=== PATIENT | female | born 1940 | race Caucasian/White ===

== ENCOUNTER 2019-03-31 12:44 | Emergency (ER) | payer MEDICARE, BC ==
[2019-03-31 12:52] VITALS: BP 120/70; PULSE 81; RESP 18; TEMP 98.4
--- NOTE | 2019-03-31 13:56 | CT ---
EXAMINATION TYPE: CT brain puneet escobar DATE OF EXAM: 03/31/2019 COMPARISON: None HISTORY: Fall last week with left frontal injury and small bump. CT DLP: 1211.3 mGycm Automated exposure control for dose reduction was used. TECHNIQUE: CT scan of the head and cervical spine are performed without contrast. FINDINGS: There is no acute intracranial hemorrhage, mass effect, or midline shift identified. Ther e is soft tissue edema or hematoma overlying the left frontal bone. Calvarium intact. Mild to moderat e generalized degenerative change. Nonspecific white matter changes most typical remote microvascular ischemia. Radio opaque densities involving both orbits suggest previous surgery correlate clinically . Cervical spine is visualized in its entirety from C1 through upper thoracic levels and demonstrates s atisfactory alignment without evidence of acute fracture or dislocation. Prevertebral soft tissue ap pears within normal limits. There is severe multilevel degenerative disc disease with vacuum disc. Posterior spondylosis noted at multiple levels and there is multilevel facet arthropathy. Multilevel foraminal encroachment noted. Artifact obscures the spinal canal. Assessment for disc herniation or o f the spinal canal nondiagnostic. Atherosclerotic plaque involving the carotid arteries bilaterally. Correlate clinically. IMPRESSION: 1. There is no acute fracture or dislocation evident in the cervical spine. Severe multilevel degener ative disc disease. 2. No acute intracranial hemorrhage, mass effect, or midline shift is seen. Degenerative and nonspeci fic white matter changes most typical remote microvascular ischemia. Radiopaque densities in the orbi ts associated with the globes most likely is postsurgical and should be correlated clinically. 3. Soft tissue hematoma left frontal region.
--- NOTE | 2019-03-31 14:28 | ED ---
Fall HPI - General Chief Complaint: Fall Stated Complaint: Fall-facial injury Time Seen by Provider: 03/31/19 12:54 Source: patient, RN notes reviewed Mode of arrival: wheelchair Limitations: no limitations - History of Present Illness Initial Comments: 78-year-old female presents emergency Department with chief complaint of fall, head injury. Patient is she fell one week ago when she is cleaning her stairs. Patient states she fell down 3 steps and hit her head. She does take a baby aspirin but no other blood thinners including Coumadin, Zaroxolyn, Eliquis or any other meds. Patient states that she has no current headache denies any neck pain but states that she still has tenderness over her forehead and has extensive bruising which is concerning to her. Patient denies any dizziness, nausea, vomiting, fever, chills, neck or back pain. - Related Data Home Medications Medication Instructions Recorded Confirmed Baclofen [Lioresal] 20 mg PO TID 03/31/19 03/31/19 Brinzolamide/Brimonidine Tart 1 drop BOTH EYES BID 03/31/19 03/31/19 [Simbrinza 1%-0.2% Eye Drops] Diclofenac Sodium [Voltaren Gel] 2 gram TOPICAL QID 03/31/19 03/31/19 Gabapentin 600 mg PO TID 03/31/19 03/31/19 Hydrocodone/Acetaminophen [[place] 1 tab PO Q6H PRN 03/31/19 03/31/19 10-325] Timolol 0.5% Ophth Soln [Timoptic 1 drop BOTH EYES DAILY 03/31/19 03/31/19 0.5% Ophth Soln] clonazePAM 1 mg PO BID 03/31/19 03/31/19 oxyCODONE ER [OxyCONTIN] 80 mg PO Q12HR 03/31/19 03/31/19 Allergies Allergy/AdvReac Type Severity Reaction Status Date / Time No Known Allergies Allergy Verified 03/31/19 14:01 Review of Systems ROS Statement: Those systems with pertinent positive or pertinent negative responses have been documented in the HPI. ROS Other: All systems not noted in ROS Statement are negative. Past Medical History Additional Past Medical History / Comment(s): osteoporosis, scoloisis, arthritis History of Any Multi-Drug Resistant Organisms: None Reported Past Surgical History: Appendectomy, Hysterectomy, Orthopedic Surgery Past Psychological History: No Psychological Hx Reported Smoking Status: Never smoker Past Alcohol Use History: Rare Past Drug Use History: None Reported General Exam Limitations: no limitations General appearance: alert, in no apparent distress Head exam: Present: atraumatic, normocephalic, normal inspection Eye exam: Present: PERRL, EOMI, periorbital swelling, periorbital tenderness. Absent: normal appearance, scleral icterus, conjunctival injection ENT exam: Present: normal exam, normal oropharynx, mucous membranes moist, TM's normal bilaterally, normal external ear exam Neck exam: Present: normal inspection, full ROM. Absent: tenderness, meningismus, lymphadenopathy Respiratory exam: Present: normal lung sounds bilaterally. Absent: respiratory distress, wheezes, rales, rhonchi, stridor Cardiovascular Exam: Present: regular rate, normal rhythm, normal heart sounds. Absent: systolic murmur, diastolic murmur, rubs, gallop, clicks Neurological exam: Present: alert, oriented X3, CN II-XII intact, reflexes normal. Absent: motor sensory deficit Skin exam: Present: warm, dry, intact, normal color. Absent: rash Course Vital Signs 03/31/19 12:48 Temperature 98.4 F Pulse Rate 81 Respiratory 18 Rate Blood Pressure 120/70 O2 Sat by Pulse 94 L Oximetry Medical Decision Making - Medical Decision Making 78-year-old female presented from for fall, head injury CT of 97 were ordered which are negative. Patient will be discharged return parameters were discussed. Disposition Clinical Impression: Fall, Head injury, Facial hematoma Disposition: HOME SELF-CARE Condition: Stable Instructions (If sedation given, give patient instructions): Head Injury (ED) Additional Instructions: Please return to the Emergency Department if symptoms worsen or any other concerns. Is patient prescribed a controlled substance at d/c from ED?: No Referrals: Mario Downey MD [Primary Care Provider] - 1-2 days Time of Disposition: 14:28
== END 2019-03-31 14:52 | disposition home or self-care (01) ==
LOC: EC 12:44
DX: S00.83XA Contusion of other part of head, initial encounter (principal); H57.89 Other specified disorders of eye and adnexa; M19.90 Unspecified osteoarthritis, unspecified site; Z79.1 Long term (current) use of non-steroidal anti-inflammatories (NSAID); Z79.82 Long term (current) use of aspirin; Z79.899 Other long term (current) drug therapy; W10.9XXA Fall (on) (from) unspecified stairs and steps, initial encounter; Y93.E9 Activity, other interior property and clothing maintenance
CPT/HCPCS: 70450; 72125; 99283

== ENCOUNTER 2020-03-28 02:03 | Emergency (ER) | payer MEDICARE, BC ==
[2020-03-28] MEDS ORDERED: LORazepam 2 MG/ML INJ IV STA (02:23)
[2020-03-28] MEDS ORDERED: SODIUM CHLORIDE 0.9% 500 ML 500 ML IV STA (02:23)
[2020-03-28] MEDS ORDERED: SODIUM CHLORIDE 0.9% 1,000 ML IV STA (02:23)
[2020-03-28] MEDS ORDERED: LABETALOL 5 MG/ML VIAL MDV IVP STA (02:23)
--- NOTE | 2020-03-28 02:35 | ED ---
Recheck HPI - General Chief Complaint: Recheck/Abnormal Lab/Rx Stated Complaint: bp issues Time Seen by Provider: 03/28/20 02:11 Source: patient, family, RN notes reviewed, old records reviewed Mode of arrival: ambulatory Limitations: no limitations - History of Present Illness Initial Comments: This is a 79-year-old female DF for evaluation patient presents today for evaluation regards to possibly taking medication, anxious but her blood pressures been running high. 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 Complaint: other (Patient wrong medication) -: hour(s) Returns Today for: other (No symptoms did have elevated blood pressure) Symptoms Since Prior Visit: no new symptoms Associated Symptoms: none Treatments Prior to Arrival: other (No treatment stated blood pressure resolved) - Related Data Home Medications Medication Instructions Recorded Confirmed Baclofen [Lioresal] 20 mg PO TID 03/31/19 03/28/20 Gabapentin 600 mg PO TID 03/31/19 03/28/20 Hydrocodone/Acetaminophen [[place] 1 tab PO Q6H PRN 03/31/19 03/28/20 10-325] clonazePAM 1 mg PO BID 03/31/19 03/28/20 Furosemide [Lasix] 20 mg PO DAILY 03/28/20 03/28/20 Losartan [Cozaar] 50 mg PO DAILY 03/28/20 03/28/20 Sulfamethox-Tmp 800-160Mg [Bactrim 1 tab PO Q12H 03/28/20 03/28/20 DS 800-160 mg] Previous Rx's Medication Instructions Recorded Gabapentin [Neurontin] 300 mg PO TID #90 cap 03/30/20 amLODIPine [Norvasc] 10 mg PO DAILY #30 tab 03/30/20 oxyCODONE ER [OxyCONTIN] 40 mg PO Q12HR #60 tab.er.12h 03/30/20 Allergies Allergy/AdvReac Type Severity Reaction Status Date / Time No Known Allergies Allergy Verified 03/28/20 19:11 Review of Systems ROS Statement: Those systems with pertinent positive or pertinent negative responses have been documented in the HPI. ROS Other: All systems not noted in ROS Statement are negative. Past Medical History Additional Past Medical History / Comment(s): osteoporosis, scoloisis, arthritis History of Any Multi-Drug Resistant Organisms: None Reported Past Surgical History: Appendectomy, Hysterectomy, Orthopedic Surgery Past Psychological History: No Psychological Hx Reported Smoking Status: Never smoker Past Alcohol Use History: Rare Past Drug Use History: None Reported General Exam Limitations: no limitations General appearance: anxious Head exam: Present: atraumatic, normocephalic, normal inspection Eye exam: Present: normal appearance, PERRL, EOMI. Absent: scleral icterus, con junctival injection, periorbital swelling ENT exam: Present: normal exam, mucous membranes moist Neck exam: Present: normal inspection. Absent: tenderness, meningismus, lymphadenopathy Respiratory exam: Present: normal lung sounds bilaterally. Absent: respiratory distress, wheezes, rales, rhonchi, stridor Cardiovascular Exam: Present: regular rate, normal rhythm, normal heart sounds. Absent: systolic murmur, diastolic murmur, rubs, gallop, clicks GI/Abdominal exam: Present: soft, normal bowel sounds. Absent: distended, tenderness, guarding, rebound, rigid Extremities exam: Present: normal inspection, full ROM, normal capillary refill. Absent: tenderness, pedal edema, joint swelling, calf tenderness Back exam: Present: normal inspection Neurological exam: Present: alert, oriented X3, CN II-XII intact Psychiatric exam: Present: normal affect, normal mood Skin exam: Present: warm, dry, intact, normal color. Absent: rash Course Vital Signs 03/28/20 03/28/20 03/28/20 02:11 03:00 04:55 Temperature 99.6 F 98.9 F Pulse Rate 118 H 82 84 Respiratory 18 18 16 Rate Blood Pressure 200/93 170/69 168/92 O2 Sat by Pulse 96 95 95 Oximetry - Reevaluation(s) Reevaluation #1: Medical records reviewed Patient is anxious a little improving here in the ER Spoke at length regarding symptoms with both son and patient, questions answered Medical Decision Making - Medical Decision Making 79-year-old female DF for evaluation patient several blood pressure issues medication issues currently believe she may have taken too many or the wrong Medications tonight no significant symptoms here in the ER blood pressures improved labwork otherwise normal patient can be discharged home, so 0 to take her home - Lab Data Result diagrams: 03/28/20 02:50 03/28/20 02:50 Lab Results 03/28/20 03/28/20 03/28/20 Range/Units 02:50 02:50 02:50 WBC 11.0 H (3.8-10.6) k/uL RBC 3.72 L (3.80-5.40) m/uL Hgb 10.2 L (11.4-16.0) gm/dL Hct 32.8 L (34.0-46.0) % MCV 88.1 (80.0-100.0) fL MCH 27.5 (25.0-35.0) pg MCHC 31.2 (31.0-37.0) g/dL RDW 15.4 (11.5-15.5) % Plt Count 143 L (150-450) k/uL Neutrophils % 89 % Lymphocytes % 6 % Monocytes % 4 % Eosinophils % 0 % Basophils % 0 % Neutrophils # 9.8 H (1.3-7.7) k/uL Lymphocytes # 0.7 L (1.0-4.8) k/uL Monocytes # 0.4 (0-1.0) k/uL Eosinophils # 0.0 (0-0.7) k/uL Basophils # 0.0 (0-0.2) k/uL PT 9.5 (9.0-12.0) sec INR 0.9 (<1.2) APTT 26.4 (22.0-30.0) sec Sodium 135 L (137-145) mmol/L Potassium 4.6 (3.5-5.1) mmol/L Chloride 100 (98-107) mmol/L Carbon Dioxide 25 (22-30) mmol/L Anion Gap 10 mmol/L BUN 33 H (7-17) mg/dL Creatinine 0.79 (0.52-1.04) mg/dL Est GFR (CKD-EPI)AfAm 82 (>60 ml/min/1.73 sqM) Est GFR (CKD-EPI)NonAf 71 (>60 ml/min/1.73 sqM) Glucose 127 H (74-99) mg/dL Calcium 9.7 (8.4-10.2) mg/dL Phosphorus 3.7 (2.5-4.5) mg/dL Magnesium 2.1 (1.6-2.3) mg/dL Total Bilirubin 0.2 (0.2-1.3) mg/dL AST 71 H (14-36) U/L ALT 32 (4-34) U/L Alkaline Phosphatase 71 (38-126) U/L Creatine Kinase 281 H (30-135) U/L Troponin I (0.000-0.034) ng/mL NT-Pro-B Natriuret Pep pg/mL Total Protein 7.6 (6.3-8.2) g/dL Albumin 4.3 (3.5-5.0) g/dL TSH 0.715 (0.465-4.680) mIU/L 03/28/20 03/28/20 Range/Units 02:50 02:50 WBC (3.8-10.6) k/uL RBC (3.80-5.40) m/uL Hgb (11.4-16.0) gm/dL Hct (34.0-46.0) % MCV (80.0-100.0) fL MCH (25.0-35.0) pg MCHC (31.0-37.0) g/dL RDW (11.5-15.5) % Plt Count (150-450) k/uL Neutrophils % % Lymphocytes % % Monocytes % % Eosinophils % % Basophils % % Neutrophils # (1.3-7.7) k/uL Lymphocytes # (1.0-4.8) k/uL Monocytes # (0-1.0) k/uL Eosinophils # (0-0.7) k/uL Basophils # (0-0.2) k/uL PT (9.0-12.0) sec INR (<1.2) APTT (22.0-30.0) sec Sodium (137-145) mmol/L Potassium (3.5-5.1) mmol/L Chloride (98-107) mmol/L Carbon Dioxide (22-30) mmol/L Anion Gap mmol/L BUN (7-17) mg/dL Creatinine (0.52-1.04) mg/dL Est GFR (CKD-EPI)AfAm (>60 ml/min/1.73 sqM) Est GFR (CKD-EPI)NonAf (>60 ml/min/1.73 sqM) Glucose (74-99) mg/dL Calcium (8.4-10.2) mg/dL Phosphorus (2.5-4.5) mg/dL Magnesium (1.6-2.3) mg/dL Total Bilirubin (0.2-1.3) mg/dL AST (14-36) U/L ALT (4-34) U/L Alkaline Phosphatase (38-126) U/L Creatine Kinase (30-135) U/L Troponin I <0.012 (0.000-0.034) ng/mL NT-Pro-B Natriuret Pep 652 pg/mL Total Protein (6.3-8.2) g/dL Albumin (3.5-5.0) g/dL TSH (0.465-4.680) mIU/L - Radiology Data Radiology results: report reviewed (Chest x-rays negative for acute disease), image reviewed Disposition Clinical Impression: Hypertension, Accidental drug ingestion Disposition: HOME SELF-CARE Condition: Good Instructions (If sedation given, give patient instructions): Hypertension (ED) Is patient prescribed a controlled substance at d/c from ED?: No Referrals: Mario Downey MD [Primary Care Provider] - 1-2 days
--- NOTE | 2020-03-28 03:05 | XR ---
EXAMINATION TYPE: XR chest 2V DATE OF EXAM: 03/28/2020 COMPARISON: NONE HISTORY: Weakness TECHNIQUE: 2 views FINDINGS: There is no heart failure. There is elevated right diaphragm. There is large hiatal hernia. Lungs appear clear of consolidation. There are no hilar masses. There is bilateral shoulder prosthes is. There are chest leads. IMPRESSION: Elevated right diaphragm could relate to some diaphragm paralysis. No heart failure seen. No pulmonary consolidation.
[2020-03-28 03:22] LABS: Albumin 4.3 g/dL (3.5-5.0); Calcium 9.7 mg/dL (8.4-10.2); Magnesium 2.1 mg/dL (1.6-2.3); Phosphorus 3.7 mg/dL (2.5-4.5); Potassium 4.6 mmol/L (3.5-5.1); Total Bilirubin 0.2 mg/dL (0.2-1.3); Total Protein 7.6 g/dL (6.3-8.2)
[2020-03-28 03:24] LABS: INR 0.9 (<1.2); Partial Thromboplastin Time 26.4 sec (22.0-30.0); Prothrombin Time 9.5 sec (9.0-12.0)
[2020-03-28 03:27] LABS: Basophils % (A) 0 %; Eosinophils % (A) 0 %; HCT 32.8 % (34.0-46.0); HGB 10.2 gm/dL (11.4-16.0); Lymphocytes # (A) 0.7 k/uL (1.0-4.8); Lymphocytes % (A) 6 %; MCH 27.5 pg (25.0-35.0); MCHC 31.2 g/dL (31.0-37.0); MCV 88.1 fL (80.0-100.0); Mean Platelet Volume 9.1; Monocytes # (A) 0.4 k/uL (0-1.0); Monocytes % (A) 4 %; Neutrophils # (A) 9.8 k/uL (1.3-7.7); Neutrophils % (A) 89 %; Platelet Count 143 k/uL (150-450); RBC 3.72 m/uL (3.80-5.40); RDW 15.4 % (11.5-15.5)
[2020-03-28 04:56] VITALS: BP 168/92; PULSE 84; RESP 16; TEMP 98.9
== END 2020-03-28 04:54 | disposition home or self-care (01) ==
LOC: EC 02:03
DX: T65.91XA Toxic effect of unspecified substance, accidental (unintentional), initial encounter (principal); I10 Essential (primary) hypertension
CPT/HCPCS: 36415; 93005; 83880; 80053; 82550; 83735; 84100; 84443; 84484; 85025; 85610; 85730; 71046; 99284; 96374; 96375; 96361 ×2; J2060

== ENCOUNTER 2020-03-28 18:14 | Inpatient (IN) | payer MEDICARE, BC ==
[2020-03-28] MEDS ORDERED: SODIUM CHLORIDE 0.9% 1,000 ML IV STA (18:40)
--- NOTE | 2020-03-28 18:44 | ED ---
Seizure HPI - General Chief Complaint: Seizure Stated Complaint: Seizure Time Seen by Provider: 03/28/20 18:20 Source: patient, EMS, RN notes reviewed, old records reviewed Mode of arrival: EMS Limitations: no limitations - History of Present Illness Initial Comments: This 79-year-old female with a history of left foot surgery days ago was seen here earlier this morning for accelerated episode of hypertension who is back today after having what appear to be a seizure activity episode lasting about 30 seconds per family the patient's son who was present did see this activity lasted approximately 30 seconds and patient was minimally responsive until EMS arrived and started intending to her. No prior history of seizure no chest pain no palpitations no other modifying factors at this time other than to state that the patient blood pressure have been going up prior to this episode. MD Complaint: possible seizure - Related Data Home Medications Medication Instructions Recorded Confirmed Baclofen [Lioresal] 20 mg PO TID 03/31/19 03/28/20 Gabapentin 600 mg PO TID 03/31/19 03/28/20 Hydrocodone/Acetaminophen [[place] 1 tab PO Q6H PRN 03/31/19 03/28/20 10-325] clonazePAM 1 mg PO BID 03/31/19 03/28/20 oxyCODONE ER [OxyCONTIN] 80 mg PO Q12HR 03/31/19 03/28/20 Furosemide [Lasix] 20 mg PO DAILY 03/28/20 03/28/20 Losartan [Cozaar] 50 mg PO DAILY 03/28/20 03/28/20 Sulfamethox-Tmp 800-160Mg [Bactrim 1 tab PO Q12H 03/28/20 03/28/20 DS 800-160 mg] Allergies Allergy/AdvReac Type Severity Reaction Status Date / Time No Known Allergies Allergy Verified 03/28/20 19:11 Review of Systems ROS Statement: Those systems with pertinent positive or pertinent negative responses have been documented in the HPI. ROS Other: All systems not noted in ROS Statement are negative. Past Medical History Additional Past Medical History / Comment(s): osteoporosis, scoloisis, arthritis History of Any Multi-Drug Resistant Organisms: None Reported Past Surgical History: Appendectomy, Hysterectomy, Orthopedic Surgery Past Psychological History: No Psychological Hx Reported Smoking Status: Never smoker Past Alcohol Use History: Rare Past Drug Use History: None Reported General Exam - General Exam Comments Initial Comments: This is a well-developed asthenic appearing female who is awake alert oriented 3 Limitations: no limitations General appearance: alert, in no apparent distress Head exam: Present: atraumatic, normocephalic, normal inspection Eye exam: Present: normal appearance, PERRL, EOMI. Absent: scleral icterus, conjunctival injection, periorbital swelling ENT exam: Present: mucous membranes dry Neck exam: Present: normal inspection, full ROM, other (No stridor JVD or bruits). Absent: tenderness, meningismus, lymphadenopathy Respiratory exam: Present: normal lung sounds bilaterally. Absent: respiratory distress, wheezes, rales, rhonchi, stridor Cardiovascular Exam: Present: normal rhythm, tachycardia, normal heart sounds. Absent: systolic murmur, diastolic murmur, rubs, gallop, clicks GI/Abdominal exam: Present: soft, normal bowel sounds. Absent: distended, tenderness, guarding, rebound, rigid Extremities exam: Present: full ROM, normal capillary refill, other ("With dressing applied no evidence of any sensorimotor vascular deficits). Absent: tenderness, pedal edema, joint swelling, calf tenderness Back exam: Present: normal inspection Neurological exam: Present: alert, oriented X3, CN II-XII intact Psychiatric exam: Present: normal affect, normal mood Skin exam: Present: warm, dry, intact, normal color. Absent: rash Course Vital Signs 03/28/20 03/28/20 03/28/20 18:16 18:20 18:58 Temperature 97.8 F Pulse Rate 126 H 107 H 105 H Respiratory 16 16 16 Rate Blood Pressure 200/92 204/103 191/90 O2 Sat by Pulse 91 L 91 L 94 L Oximetry 03/28/20 19:47 Temperature Pulse Rate 105 H Respiratory 18 Rate Blood Pressure 191/81 O2 Sat by Pulse 97 Oximetry Medical Decision Making - Medical Decision Making I did reevaluate patient several occasions patient will be admitted for evaluation case is discussed with Dr. Downey. - Lab Data Result diagrams: 03/28/20 18:29 03/28/20 18:29 Lab Results 03/28/20 03/28/20 03/28/20 Range/Units 18:29 18:29 18:56 WBC 9.2 (3.8-10.6) k/uL RBC 4.10 (3.80-5.40) m/uL Hgb 11.3 L (11.4-16.0) gm/dL Hct 36.4 (34.0-46.0) % MCV 88.7 (80.0-100.0) fL MCH 27.6 (25.0-35.0) pg MCHC 31.1 (31.0-37.0) g/dL RDW 15.2 (11.5-15.5) % Plt Count 164 (150-450) k/uL Neutrophils % 86 % Lymphocytes % 9 % Monocytes % 4 % Eosinophils % 0 % Basophils % 0 % Neutrophils # 7.9 H (1.3-7.7) k/uL Lymphocytes # 0.8 L (1.0-4.8) k/uL Monocytes # 0.3 (0-1.0) k/uL Eosinophils # 0.0 (0-0.7) k/uL Basophils # 0.0 (0-0.2) k/uL Sodium 130 L (137-145) mmol/L Potassium 4.7 (3.5-5.1) mmol/L Chloride 96 L (98-107) mmol/L Carbon Dioxide 21 L (22-30) mmol/L Anion Gap 13 mmol/L BUN 21 H (7-17) mg/dL Creatinine 0.71 (0.52-1.04) mg/dL Est GFR (CKD-EPI)AfAm >90 (>60 ml/min/1.73 sqM) Est GFR (CKD-EPI)NonAf 81 (>60 ml/min/1.73 sqM) Glucose 215 H (74-99) mg/dL POC Glucose (mg/dL) 207 H (75-99) mg/dL POC Glu Marketing Representative ID [place], [place] Calcium 9.4 (8.4-10.2) mg/dL Magnesium 2.0 (1.6-2.3) mg/dL Total Bilirubin 0.3 (0.2-1.3) mg/dL AST 57 H (14-36) U/L ALT 28 (4-34) U/L Alkaline Phosphatase 67 (38-126) U/L Total Protein 7.6 (6.3-8.2) g/dL Albumin 4.3 (3.5-5.0) g/dL - EKG Data -: EKG Interpreted by Ne EKG shows normal: sinus rhythm (Sinus tachycardia rate of 108 appear interval 1:30 QRS duration 74 QT since QTC 360/[address] configuration is compared to EKG done earlier this morning.) - Radiology Data Radiology results: report reviewed (I did review the imaging and report no acute findings.), image reviewed Disposition Clinical Impression: New onset seizure, Hypertension Disposition: ADMITTED IP TO THIS [facility] Condition: Fair Referrals: Mario Downey MD [Primary Care Provider] - 1-2 days
[2020-03-28 18:57] LABS: Basophils % (A) 0 %; Eosinophils % (A) 0 %; HCT 36.4 % (34.0-46.0); HGB 11.3 gm/dL (11.4-16.0); Lymphocytes # (A) 0.8 k/uL (1.0-4.8); Lymphocytes % (A) 9 %; MCH 27.6 pg (25.0-35.0); MCHC 31.1 g/dL (31.0-37.0); MCV 88.7 fL (80.0-100.0); Mean Platelet Volume 9.7; Monocytes # (A) 0.3 k/uL (0-1.0); Monocytes % (A) 4 %; Neutrophils # (A) 7.9 k/uL (1.3-7.7); Neutrophils % (A) 86 %; Platelet Count 164 k/uL (150-450); RDW 15.2 % (11.5-15.5); WBC 9.2 k/uL (3.8-10.6)
[2020-03-28 19:06] LABS: ALT 28 U/L (4-34); AST 57 U/L (14-36); African American GFR (CKD) >90 (>60 ml/min/1.73 sqM); Albumin 4.3 g/dL (3.5-5.0); Alkaline Phosphatase 67 U/L (38-126); Anion Gap 13 mmol/L; Blood Urea Nitrogen 21 mg/dL (7-17); Calcium 9.4 mg/dL (8.4-10.2); Carbon Dioxide 21 mmol/L (22-30); Chloride 96 mmol/L (98-107); Glucose 215 mg/dL (74-99); Non-African American GFR(CKD) 81 (>60 ml/min/1.73 sqM); Potassium 4.7 mmol/L (3.5-5.1); Sodium 130 mmol/L (137-145); Total Bilirubin 0.3 mg/dL (0.2-1.3); Total Protein 7.6 g/dL (6.3-8.2)
[2020-03-28 19:12] LABS: Glucose,Whole Blood 207 mg/dL (75-99)
--- NOTE | 2020-03-28 19:45 | CT ---
EXAMINATION TYPE: CT brain wo con DATE OF EXAM: 03/28/2020 HISTORY: possible overdose. Altered Mental status and seizure activity. CT DLP: 1173.4 mGycm. Automated Exposure Control for Dose Reduction was Utilized. TECHNIQUE: CT scan of the head is performed without contrast. COMPARISON: CT brain from March 31, 2019 FINDINGS: There is no acute intracranial hemorrhage or midline shift identified. There is diffuse v entricular and sulcal prominence consistent with diffuse age-related cerebral atrophy. There is low- attenuation in the periventricular white matter consistent with chronic small vessel ischemic change. Persistent bilateral scleral collin. Paranasal sinuses are clear. IMPRESSION: No acute intracranial hemorrhage or midline shift. There is mild diffuse age-related ce rebral atrophy and chronic small vessel ischemic change redemonstrated. No significant change from pr ior CT.
[2020-03-28] MEDS ORDERED: oxyCODONE ER 80 MG TAB.ER.12H PO STA (20:14)
[2020-03-28] MEDS ORDERED: NALOXONE 0.4 MG/ML 1 ML VIAL IV PRN (20:39)
[2020-03-28] MEDS ORDERED: HYDROcodone/APAP 10-325MG 1 EACH TAB PO PRN (20:42)
[2020-03-28] MEDS: oxyCODONE ER 80 MG TAB.ER.12H PO SCH (20:58)
[2020-03-28] MEDS: SULFAMETHOX-TMP 800-160MG 1 EACH TAB PO SCH (21:00)
[2020-03-28] MEDS: SODIUM CHLORIDE 0.9% 1,000 ML IV SCH (21:00)
[2020-03-28 21:45] LABS: Amorphous Sediment,Urine Rare /hpf; Appearance,Urine Clear (Clear); Bacteria,Urine Rare /hpf; Bilirubin,Urine Negative (Negative); Blood,Urine Negative (Negative); Color,Urine Light Yellow; Glucose,Urine (UA) 3+ (Negative); Ketones,Urine Negative (Negative); Leukocyte Esterase,Urine Small (Negative); Nitrite,Urine Negative (Negative); Protein,Urine Negative (Negative); RBC,Urine 2 /hpf (0-5); Specific Gravity,Urine 1.014 (1.001-1.035); Squamous Epithelial Cell,Urine 2 /hpf (0-4); Urobilinogen,Urine <2.0 mg/dL (<2.0); WBC,Urine 10 /hpf (0-5)
[2020-03-28] MEDS ORDERED: LABETALOL 5 MG/ML VIAL MDV IVP STA ×2 (22:15→22:25)
[2020-03-28] MEDS: BACLOFEN 10 MG TAB PO SCH (22:30)
[2020-03-28] MEDS: clonazePAM 1 MG TAB PO SCH (22:30)
[2020-03-28] MEDS: amLODIPine 5 MG TAB PO SCH (23:48)
[2020-03-28] MEDS: GABAPENTIN 300 MG CAP PO SCH (23:49)
--- NOTE | 2020-03-29 08:00 | P.HPIM ---
History of Present Illness H&P Date: 03/29/20 Chief Complaint: Tonic clonic This is a history and physical an 79-year-old white female with no previous history of seizure disorder who states that she, for the last several months has started new vitamin regimen area supposedly, the bottle stated that she was not supposed to take the supplement with antibiotics. She states she recently had dilatation done and was on postoperative antibiotic treatment. When her son was visiting her, she had fallen and had tonic-clonic activity for several minutes and was postictal. When she arrived in the emergency room, she was quite lucid however. Computed tomography scan of the head did not show any new abnormality, and the patient seems to be back to her normal baseline although she her thoughts do somewhat wander when interviewing her. She hasn't underlying history of severe scoliosis and lordosis and has an element of chronic pain. She is opiate dependent. Underlying history of glaucoma also. Review of Systems Constitutional: Denies chills, Denies fever Eyes: denies blurred vision, denies pain Ears, nose, mouth and throat: Denies headache, Denies sore throat Respiratory: Denies cough Gastrointestinal: Denies abdominal pain, Denies diarrhea, Denies nausea, Denies vomiting Musculoskeletal: Reports limitation of motion, Reports low back pain Integumentary: Denies pruritus, Denies rash Neurological: Reports confusion, Reports seizures Psychiatric: Denies anxiety, Denies depression Endocrine: Denies fatigue, Denies weight change Past Medical History Additional Past Medical History / Comment(s): osteoporosis, scoloisis, arthritis History of Any Multi-Drug Resistant Organisms: None Reported Past Surgical History: Appendectomy, Hysterectomy, Orthopedic Surgery Additional Past Surgical History / Comment(s): 2 shoulder surgeries with metal plates, hammer toes Past Anesthesia/Blood Transfusion Reactions: No Reported Reaction Past Psychological History: No Psychological Hx Reported Smoking Status: Never smoker Past Alcohol Use History: Rare Past Drug Use History: None Reported Medications and Allergies Home Medications Medication Instructions Recorded Confirmed Type Baclofen [Lioresal] 20 mg PO TID 03/31/19 03/28/20 History Gabapentin 600 mg PO TID 03/31/19 03/28/20 History Hydrocodone/Acetaminophen [[place] 1 tab PO Q6H PRN 03/31/19 03/28/20 History 10-325] clonazePAM 1 mg PO BID 03/31/19 03/28/20 History oxyCODONE ER [OxyCONTIN] 80 mg PO Q12HR 03/31/19 03/28/20 History Furosemide [Lasix] 20 mg PO DAILY 03/28/20 03/28/20 History Losartan [Cozaar] 50 mg PO DAILY 03/28/20 03/28/20 History Sulfamethox-Tmp 800-160Mg [Bactrim 1 tab PO Q12H 03/28/20 03/28/20 History DS 800-160 mg] Allergies Allergy/AdvReac Type Severity Reaction Status Date / Time No Known Allergies Allergy Verified 03/28/20 19:11 Physical Exam Vitals: Vital Signs Temp Pulse Pulse Resp BP BP Pulse Ox 03/29/20 04:00 98.5 F 102 H 19 159/66 93 L 03/29/20 00:00 98.5 F 94 19 156/72 97 03/28/20 21:40 98.8 F 101 H 19 202/83 97 03/28/20 20:50 90 17 191/89 97 03/28/20 19:47 105 H 18 191/81 97 03/28/20 18:58 105 H 16 191/90 94 L 03/28/20 18:20 107 H 16 204/103 91 L 03/28/20 18:16 97.8 F 126 H 16 200/92 91 L Intake and Output 03/28/20 03/29/20 03/29/20 22:59 06:59 14:59 Other: Voiding Method Bedpan # Voids 2 Weight 45.359 kg 48 kg - Constitutional General appearance: no acute distress - EENT Eyes: EOMI - Neck Neck: no lymphadenopathy - Respiratory Respiratory: bilateral: CTA - Cardiovascular Rhythm: regular Heart sounds: normal: S1, S2 Abnormal Heart Sounds: no S3 Gallop - Gastrointestinal General gastrointestinal: soft, no tenderness - Integumentary Postop amputation of toes. - Psychiatric Psychiatric: appropriate affect Results CBC & Chem 7: 03/28/20 18:29 03/28/20 18:29 Labs: Abnormal Lab Results - Last 24 Hours (Table) 03/28/20 03/28/20 03/28/20 Range/Units 18:29 18:29 18:56 Hgb 11.3 L (11.4-16.0) gm/dL Neutrophils # 7.9 H (1.3-7.7) k/uL Lymphocytes # 0.8 L (1.0-4.8) k/uL Sodium 130 L (137-145) mmol/L Chloride 96 L (98-107) mmol/L Carbon Dioxide 21 L (22-30) mmol/L BUN 21 H (7-17) mg/dL Glucose 215 H (74-99) mg/dL POC Glucose (mg/dL) 207 H (75-99) mg/dL AST 57 H (14-36) U/L Urine Glucose (UA) (Negative) Ur Leukocyte Esterase (Negative) Urine WBC (0-5) /hpf Amorphous Sediment (None) /hpf Urine Bacteria (None) /hpf 03/28/20 Range/Units 21:05 Hgb (11.4-16.0) gm/dL Neutrophils # (1.3-7.7) k/uL Lymphocytes # (1.0-4.8) k/uL Sodium (137-145) mmol/L Chloride (98-107) mmol/L Carbon Dioxide (22-30) mmol/L BUN (7-17) mg/dL Glucose (74-99) mg/dL POC Glucose (mg/dL) (75-99) mg/dL AST (14-36) U/L Urine Glucose (UA) 3+ H (Negative) Ur Leukocyte Esterase Small H (Negative) Urine WBC 10 H (0-5) /hpf Amorphous Sediment Rare H (None) /hpf Urine Bacteria Rare H (None) /hpf Microbiology - Last 24 Hours (Table) 03/28/20 21:00 Urine Culture - Preliminary Urine,Voided Thrombosis Risk Factor Assmnt - Choose All That Apply Each Risk Factor Represents 3 Points: Age 75 years or older Thrombosis Risk Factor Assessment Total Risk Factor Score: 3 Thrombosis Risk Factor Assessment Level: Moderate Risk Assessment and Plan (1) Scoliosis Current Visit: Yes Status: Acute Code(s): M41.9 - SCOLIOSIS, UNSPECIFIED SNOMED Code(s): 819586474 (2) Hypertension Current Visit: Yes Status: Acute Code(s): I10 - ESSENTIAL (PRIMARY) HYPERTENSION SNOMED Code(s): 91015764 (3) New onset seizure Current Visit: Yes Status: Acute Code(s): R56.9 - UNSPECIFIED CONVULSIONS SNOMED Code(s): 28337819 (4) Accidental drug ingestion Current Visit: No Status: Acute Code(s): T50.901A - POISONING BY UNSP DRUG/MEDS/BIOL SUBST, ACCIDENTAL, INIT SNOMED Code(s): 585708626 Plan: The plan will be due full neurologic workup with consultation. Reconcile home medications. The patient is told to stop vitamin supplementation for now other than her eye support for glaucoma. Check CBC and CMP in a.m. Prognosis is guarded see orders otherwise. Adjust antihypertensive medication Time with Patient: Greater than 30
[2020-03-29] MEDS: SULFAMETHOX-TMP 800-160MG 1 EACH TAB PO SCH ×2 (08:13→20:42)
[2020-03-29] MEDS: amLODIPine 5 MG TAB PO SCH (08:13)
[2020-03-29] MEDS: FUROSEMIDE 20 MG TAB PO SCH (08:13)
[2020-03-29] MEDS: LOSARTAN 50 MG TAB PO SCH (08:14)
[2020-03-29] MEDS: SODIUM CHLORIDE 0.9% 1,000 ML IV SCH ×2 (10:31→21:00)
[2020-03-29] MEDS: clonazePAM 1 MG TAB PO SCH ×2 (10:31→20:42)
[2020-03-29] MEDS: GABAPENTIN 300 MG CAP PO SCH ×3 (10:32→23:51)
[2020-03-29] MEDS: oxyCODONE ER 80 MG TAB.ER.12H PO SCH ×2 (10:33→20:42)
[2020-03-29] MEDS: BACLOFEN 10 MG TAB PO SCH ×3 (10:35→23:50)
--- NOTE | 2020-03-29 12:36 | EEG ---
ELECTROENCEPHALOGRAM REPORT DATE OF SERVICE: 03/29/2020 PREAMBLE: This is an 79-year-old female who was brought to the hospital after possible having a seizure at home according to her son. EEG FINDINGS: This is a 21 channel routine EEG recording. The patient is noted to be awake during the study. Hyperventilation was not done. Photic stimulation was performed. The EEG was performed utilizing 10-20 international system with referential and bipolar montages. Background consists of well-developed, moderately well regulated, mixed frequency of 10-11 Hz alpha, mixed with some fast frequency myogenic activity. The background does not seem to be clearly reactive to eye opening or closing. Photic driving response was not seen. Different stages of sleep were not seen. No focal or generalized epileptiform activity was seen. EKG rhythm lead revealed no arrhythmia. IMPRESSION: This is a normal awake EEG. No focal, lateralized or epileptiform activity was seen. MMODL / IJN: [id number] / MTDD
--- NOTE | 2020-03-29 12:57 | P.CRDCN ---
History of Present Illness Consult date: 03/29/20 Requesting physician: Mario Downey Consult reason: hypertension Chief complaint: Seizure-like activity History of present illness: This is an 79-year-old female with history of seizure disorder, osteoporosis, chronic pain and opioid dependence, hypertension, who presented to the hospital with what appeared to be a tonic-clonic seizure, witnessed by her son. According to the patient, she feels that her symptoms were related to new vitamins that she's been taking at home. She did present to the emergency room prior to this visit at around 2:00 in the morning because of accelerated hypertension, she was treated and discharged home. Cardiology consultation has been requested because of accelerated hypertension. Patient has no history of diabetes, no hyperlipidemia, she is a nonsmoker. Blood pressure this morning 184/74, heart rate 103, temperature 99.4, 93% on 2 L of oxygen. EKG shows a sinus tachycardia with no acute changes. White blood cell count 9.5, hemoglobin 11.3, platelet count 164. Sodium 1:30, potassium 4.7, BUN 21, creatinine 0.7. Magnesium 2.0. Past Medical History Additional Past Medical History / Comment(s): osteoporosis, scoloisis, arthritis History of Any Multi-Drug Resistant Organisms: None Reported Past Surgical History: Appendectomy, Hysterectomy, Orthopedic Surgery Additional Past Surgical History / Comment(s): 2 shoulder surgeries with metal plates, hammer toes Past Anesthesia/Blood Transfusion Reactions: No Reported Reaction Past Psychological History: No Psychological Hx Reported Smoking Status: Never smoker Past Alcohol Use History: Rare Past Drug Use History: None Reported Medications and Allergies Home Medications Medication Instructions Recorded Confirmed Type Baclofen [Lioresal] 20 mg PO TID 03/31/19 03/28/20 History Gabapentin 600 mg PO TID 03/31/19 03/28/20 History Hydrocodone/Acetaminophen [[place] 1 tab PO Q6H PRN 03/31/19 03/28/20 History 10-325] clonazePAM 1 mg PO BID 03/31/19 03/28/20 History oxyCODONE ER [OxyCONTIN] 80 mg PO Q12HR 03/31/19 03/28/20 History Furosemide [Lasix] 20 mg PO DAILY 03/28/20 03/28/20 History Losartan [Cozaar] 50 mg PO DAILY 03/28/20 03/28/20 History Sulfamethox-Tmp 800-160Mg [Bactrim 1 tab PO Q12H 03/28/20 03/28/20 History DS 800-160 mg] Allergies Allergy/AdvReac Type Severity Reaction Status Date / Time No Known Allergies Allergy Verified 03/28/20 19:11 Physical Exam Vitals: Vital Signs Temp Pulse Pulse Resp BP BP Pulse Ox 03/29/20 11:04 93 16 172/81 94 L 03/29/20 08:00 99.4 F 103 H 16 184/74 95 03/29/20 04:00 98.5 F 102 H 19 159/66 93 L 03/29/20 00:00 98.5 F 94 19 156/72 97 03/28/20 21:40 98.8 F 101 H 19 202/83 97 03/28/20 20:50 90 17 191/89 97 03/28/20 19:47 105 H 18 191/81 97 03/28/20 18:58 105 H 16 191/90 94 L 03/28/20 18:20 107 H 16 204/103 91 L 03/28/20 18:16 97.8 F 126 H 16 200/92 91 L Intake and Output 03/28/20 03/29/20 03/29/20 22:59 06:59 14:59 Other: Voiding Method Bedpan # Voids 2 3 Weight 45.359 kg 48 kg PHYSICAL EXAMINATION: GENERAL: 79-year-old female in no acute distress at the time of my examination HEENT: Head is atraumatic, normocephalic. Pupils equal, round. Sclera anicteric. Conjunctiva are clear. Mucous membranes of the mouth are moist. Neck is supple. There is no elevated jugular venous pressure. No carotid bruit is heard. HEART EXAMINATION: Heart S1, S2 normal. No murmur or gallop heard. CHEST EXAMINATION: Lungs are clear to auscultation and precussion. No chest wall tenderness is noted on palpation or with deep breathing. ABDOMEN: Soft, nontender. Bowel sounds are heard. No organomegaly noted. EXTREMITIES: 2+ peripheral pulses with no evidence of peripheral edema and no calf tenderness noted. NEUROLOGIC patient is awake, alert and oriented 3 . Results 03/28/20 18:29 03/28/20 18:29 Cardiac Enzymes 03/28/20 Range/Units 18:29 AST 57 H (14-36) U/L CBC 03/28/20 Range/Units 18:29 WBC 9.2 (3.8-10.6) k/uL RBC 4.10 (3.80-5.40) m/uL Hgb 11.3 L (11.4-16.0) gm/dL Hct 36.4 (34.0-46.0) % Plt Count 164 (150-450) k/uL Comprehensive Metabolic Panel 03/28/20 Range/Units 18:29 Sodium 130 L (137-145) mmol/L Potassium 4.7 (3.5-5.1) mmol/L Chloride 96 L (98-107) mmol/L Carbon Dioxide 21 L (22-30) mmol/L BUN 21 H (7-17) mg/dL Creatinine 0.71 (0.52-1.04) mg/dL Glucose 215 H (74-99) mg/dL Calcium 9.4 (8.4-10.2) mg/dL AST 57 H (14-36) U/L ALT 28 (4-34) U/L Alkaline Phosphatase 67 (38-126) U/L Total Protein 7.6 (6.3-8.2) g/dL Albumin 4.3 (3.5-5.0) g/dL Current Medications Generic Name Dose Route Start Last Admin Trade Name Freq PRN Reason Stop Dose Admin Hydrocodone Bitart/Acetaminophen 1 each 03/28/20 20:42 [place] 10 PO Q6H PRN Pain Amlodipine Besylate 10 mg 03/30/20 09:00 Norvasc PO DAILY MAN Baclofen 20 mg 03/28/20 22:00 03/29/20 10:35 Lioresal PO Not Given TID MAN Clonazepam 1 mg 03/28/20 21:00 03/29/20 10:31 Klonopin PO Not Given BID MAN Furosemide 20 mg 03/29/20 09:00 03/29/20 08:13 Lasix PO 20 mg DAILY MAN Administration Gabapentin 600 mg 03/28/20 22:00 03/29/20 10:32 Neurontin PO 600 mg TID MAN Administration Sodium Chloride 1,000 mls @ 80 mls/hr 03/28/20 20:45 03/29/20 10:31 Saline 0.9% IV Not Given .[id number] MAN Losartan Potassium 50 mg 03/29/20 09:00 03/29/20 08:14 Cozaar PO Not Given DAILY MAN Naloxone HCl 0.2 mg 03/28/20 20:39 Narcan IV Q2M PRN Opioid Reversal Oxycodone HCl 80 mg 03/28/20 21:00 03/29/20 10:33 Oxycontin 80mg E.R. PO 80 mg Q12HR MAN Administration Trimethoprim/Sulfamethoxazole 1 each 03/28/20 20:45 03/29/20 08:13 Bactrim Ds PO 1 each Q12H MAN Administration Intake and Output 03/28/20 03/29/20 03/29/20 22:59 06:59 14:59 Other: Voiding Method Bedpan # Voids 2 3 Weight 45.359 kg 48 kg 03/28/20 18:29 03/28/20 18:29 EKG Interpretations (text) EKG shows a sinus tachycardia. Assessment and Plan Plan: Assessment and plan #1 possible seizure, neurology following #2 accelerated hypertension #3 chronic pain with opioid dependence #4 scoliosis Plan We will obtain an echocardiogram with Doppler study. Increase Norvasc to 10 mg daily and add hydrochlorothiazide to her medication regime. Further recommendations to follow. DNP note has been reviewed, I agree with a documented findings and plan of care. Patient was seen and examined.
[2020-03-29] MEDS: hydroCHLOROthiazide 25 MG TAB PO SCH (13:16)
--- NOTE | 2020-03-29 15:47 | P.CNNES ---
History of Present Illness Consult date: 03/29/20 Requesting physician: Morgan Tijerina Reason for Consult: New onset seizure History of Present Illness: Patient is a 79-year-old female, arrived to the ER yesterday at 6:14 PM for new onset seizure. Patient's son was present, who along with the patient also provided the history. Patient was seen earlier in the ER, he yesterday morning at 1:45 AM for high blood pressure. Her blood pressure was managed and was sent home at 5 AM. Patient slept for couple hours. When she woke up, her blood pressure was still around 192 220 systolics. Did talk to her primary physician who recommended to give an extra losartan 100 mg which she took at 11 AM. At 5:30 PM patient got up to eat. She was sitting at the table, was talking and in the mid sentence, she stiffened up like a board, her eyes rolled up and she was foaming from the mouth. Patient's son got her down to the floor and then she had a few clonic jerks and then she was unresponsive. Her mouth was fluttering and frothing. Patient would not respond. EMS was called. Patient was minimally responsive until EMS arrived and started attending to her. No prior history of seizure, no chest pain no palpitations no abdominal pain nausea vomiting diarrhea. Patient's vital signs on arrival was blood pressure 200/92, pulse rate 126, temperature 97.8. Her blood pressure has improved, and now it is 172/81. CT head showed no acute intracranial hemorrhage or midline shift. There is mild diffuse age-related cerebral atrophy and chronic small vessel ischemic change redemonstrated. No significant change from prior CT. EKG showed a sinus tachycardia. Possible left atrial enlargement. EEG was normal, showed no epileptiform activity. Patient's blood test shows normal WBC 9.2 hemoglobin 11.3, platelets 164. Sodium 130, potassium 4.7, and normal renal functions. AST is mildly elevated 57, ALT 28. UA negative. Patient at home is on multiple heavy-duty medications including OxyContin 80 mg every 12 hours, gabapentin 600 mg 3 times a day, [place] 10 mg every 6 hours, clonazepam 1 mg twice a day and baclofen 20 mg 3 times a day. Patient has scoliosis. Upon further interrogation with the patient and her son, it appears patient has been on Klonopin 1 mg twice a day for number of years. In the last few months she started taking it once a day. Patient had undergone left toe surgery last Thursday on 03/23/2020. Patient stopped taking Klonopin after the surgery. Patient probably had benzodiazepine withdrawal seizure. Review of Systems Denies headache, focal numbness tingling or weakness. 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 Denies chest pain shortness of breath wheezing or cough. Denies abdominal pain nausea vomiting diarrhea. She does have chronic back pain related to scoliosis. Past Medical History Additional Past Medical History / Comment(s): osteoporosis, scoloisis, arthritis History of Any Multi-Drug Resistant Organisms: None Reported Past Surgical History: Appendectomy, Hysterectomy, Orthopedic Surgery Additional Past Surgical History / Comment(s): 2 shoulder surgeries with metal plates, hammer toes Past Anesthesia/Blood Transfusion Reactions: No Reported Reaction Past Psychological History: No Psychological Hx Reported Smoking Status: Never smoker Past Alcohol Use History: Rare Past Drug Use History: None Reported Medications and Allergies Home Medications Medication Instructions Recorded Confirmed Type Baclofen [Lioresal] 20 mg PO TID 03/31/19 03/28/20 History Gabapentin 600 mg PO TID 03/31/19 03/28/20 History Hydrocodone/Acetaminophen [[place] 1 tab PO Q6H PRN 03/31/19 03/28/20 History 10-325] clonazePAM 1 mg PO BID 03/31/19 03/28/20 History oxyCODONE ER [OxyCONTIN] 80 mg PO Q12HR 03/31/19 03/28/20 History Furosemide [Lasix] 20 mg PO DAILY 03/28/20 03/28/20 History Losartan [Cozaar] 50 mg PO DAILY 03/28/20 03/28/20 History Sulfamethox-Tmp 800-160Mg [Bactrim 1 tab PO Q12H 03/28/20 03/28/20 History DS 800-160 mg] Allergies Allergy/AdvReac Type Severity Reaction Status Date / Time No Known Allergies Allergy Verified 03/28/20 19:11 Physical Examination - Vital Signs Vital Signs: Vital Signs Temp Pulse Pulse Resp BP BP Pulse Ox 03/29/20 11:04 93 16 172/81 94 L 03/29/20 08:00 99.4 F 103 H 16 184/74 95 03/29/20 04:00 98.5 F 102 H 19 159/66 93 L 03/29/20 00:00 98.5 F 94 19 156/72 97 03/28/20 21:40 98.8 F 101 H 19 202/83 97 03/28/20 20:50 90 17 191/89 97 03/28/20 19:47 105 H 18 191/81 97 03/28/20 18:58 105 H 16 191/90 94 L 03/28/20 18:20 107 H 16 204/103 91 L 03/28/20 18:16 97.8 F 126 H 16 200/92 91 L Intake and Output 03/28/20 03/29/20 03/29/20 22:59 06:59 14:59 Intake Total 240 Balance 240 Intake: Oral 240 Other: Voiding Method Bedpan # Voids 2 3 Weight 45.359 kg 48 kg On examination patient is an elderly female, in no acute distress. Patient is alert and awake fully oriented to time place and person. Speech and language functions are normal. Attention and concentration fund of knowledge is adequate. Cranial exam showed right pupil is very irregular, surgical. Left pupil is mildly irregular. However both pupils are reacting to light. Visual jeter are restricted because of glaucoma. Extraocular muscles are intact with no nystagmus. Face is symmetric. Tongue protrudes on midline with no atrophy or fasciculations. Palatal elevation and sensation normal. Hearing and shoulder shrug normal. On muscle strength testing there is no pronator drift and the strength is normal in arms and legs distally and proximally. Deep ten don reflexes are 1+ and plantars downgoing. Sensory touch is equal. No ataxia for [id number] testing. Tone and bulk of muscles normal. No carotid bruit, S1 and S2 audible. Peripheral pulses present no edema. Abdomen soft nontender. Chest is clear. Results - Laboratory Findings CBC and BMP: 03/28/20 18:29 03/28/20 18:29 Abnormal Lab Findings: Abnormal Labs 03/28/20 03/28/20 03/28/20 18:29 18:29 18:56 Hgb 11.3 L Neutrophils # 7.9 H Lymphocytes # 0.8 L Sodium 130 L Chloride 96 L Carbon Dioxide 21 L BUN 21 H Glucose 215 H POC Glucose (mg/dL) 207 H AST 57 H Urine Glucose (UA) Ur Leukocyte Esterase Urine WBC Amorphous Sediment Urine Bacteria 03/28/20 21:05 Hgb Neutrophils # Lymphocytes # Sodium Chloride Carbon Dioxide BUN Glucose POC Glucose (mg/dL) AST Urine Glucose (UA) 3+ H Ur Leukocyte Esterase Small H Urine WBC 10 H Amorphous Sediment Rare H Urine Bacteria Rare H Assessment and Plan Assessment: * Probable benzodiazepine withdrawal seizure. Patient has been on Klonopin for number of years, which she stopped taking after her foot surgery on 03/23/2020. Patient probably had benzo withdrawal seizure. * Uncontrolled hypertension, which may be contributing to the seizure. * Opiate dependence, chronic pain. Plan: * Patient had an EEG performed, which was normal. * Patient's seizure was likely provoked due to benzodiazepine withdrawal. No indication for antiepileptic medication. No other workup indicated. * Patient is taking multiple heavy duty opiates. Recommend significantly cutting back on the dose of opiates. * Patient recommended not to abruptly stopped taking benzodiazepine in future. * Neurologically clear for discharge.
[2020-03-29] MEDS ORDERED: amLODIPine 5 MG TAB PO STA (16:16)
--- NOTE | 2020-03-30 08:15 | P.DS ---
Providers Date of admission: 03/28/20 20:43 Attending physician: Mario Downey Consults: 03/28/20 20:41 Consult Physician Routine Consulting Provider: Debbie Shaw Consult Reason/Comments: New-onset seizure Do you want consulting provider notified?: Yes Consult Physician Routine Consulting Provider: Cr Donohue Consult Reason/Comments: New-onset seizure Do you want consulting provider notified?: Yes Primary care physician: Mario Downey - Discharge Diagnosis(es) (1) Scoliosis Current Visit: Yes Status: Acute (2) Hypertension Current Visit: Yes Status: Acute (3) New onset seizure Current Visit: Yes Status: Acute (4) Accidental drug ingestion Current Visit: No Status: Acute Hospital Course: This discharge summary 79-year-old female essentially admitted for seizure disorder which most likely is related benzodiazepine withdrawal. Neurology and cardiology were consulted. She is now fairly stable but we will slowly decrease her gabapentin and oxycodone which could be, as her age advance his starting to become toxic for appropriate care. The patient is discharged in stable condition to follow-up with me in 3-5 days. Patient Condition at Discharge: Fair Plan - Discharge Summary Discharge Rx Participant: Yes New Discharge Prescriptions: New Gabapentin [Neurontin] 300 mg PO TID #90 cap amLODIPine [Norvasc] 10 mg PO DAILY #30 tab oxyCODONE ER [OxyCONTIN] 40 mg PO Q12HR #60 tab.er.12h Continue Hydrocodone/Acetaminophen [[place] 10-325] 1 tab PO Q6H PRN PRN Reason: Pain Gabapentin 600 mg PO TID clonazePAM 1 mg PO BID Baclofen [Lioresal] 20 mg PO TID Furosemide [Lasix] 20 mg PO DAILY Sulfamethox-Tmp 800-160Mg [Bactrim DS 800-160 mg] 1 tab PO Q12H Losartan [Cozaar] 50 mg PO DAILY Discontinued oxyCODONE ER [OxyCONTIN] 80 mg PO Q12HR Discharge Medication List Baclofen [Lioresal] 20 mg PO TID 03/31/19 [History] Gabapentin 600 mg PO TID 03/31/19 [History] Hydrocodone/Acetaminophen [[place] 10-325] 1 tab PO Q6H PRN 03/31/19 [History] clonazePAM 1 mg PO BID 03/31/19 [History] Furosemide [Lasix] 20 mg PO DAILY 03/28/20 [History] Losartan [Cozaar] 50 mg PO DAILY 03/28/20 [History] Sulfamethox-Tmp 800-160Mg [Bactrim DS 800-160 mg] 1 tab PO Q12H 03/28/20 [History] Gabapentin [Neurontin] 300 mg PO TID #90 cap 03/30/20 [Rx] amLODIPine [Norvasc] 10 mg PO DAILY #30 tab 03/30/20 [Rx] oxyCODONE ER [OxyCONTIN] 40 mg PO Q12HR #60 tab.er.12h 03/30/20 [Rx] Follow up Appointment(s)/Referral(s): Mario Downey MD [Primary Care Provider] - 1-2 days Discharge Disposition: HOME SELF-CARE
[2020-03-30] MEDS: GABAPENTIN 300 MG CAP PO SCH (08:59)
[2020-03-30] MEDS: FUROSEMIDE 20 MG TAB PO SCH (08:59)
[2020-03-30] MEDS: SULFAMETHOX-TMP 800-160MG 1 EACH TAB PO SCH (08:59)
[2020-03-30] MEDS: LOSARTAN 50 MG TAB PO SCH (08:59)
[2020-03-30] MEDS: hydroCHLOROthiazide 25 MG TAB PO SCH (08:59)
[2020-03-30] MEDS: BACLOFEN 10 MG TAB PO SCH (08:59)
[2020-03-30] MEDS ORDERED: amLODIPine 10 MG TAB PO SCH (09:00)
[2020-03-30] MEDS ORDERED: oxyCODONE ER 20 MG TAB.ER.12H PO SCH (09:00)
[2020-03-30] MEDS: clonazePAM 1 MG TAB PO SCH (09:00)
--- NOTE | 2020-03-30 09:24 | CDI ---
Documentation Clarification Form Date: 03/30/2020 08:50:17 AM From: Izzy Rodriguez RN, CCDS Admit Date: 03/28/2020 08:43:00 PM Patient Name: Raeann Madrid Visit Number: [id number] Discharge Date: ATTENTION: The Clinical Documentation Specialists (CDI) and [facility] Coding Staff appreciate your assistance in clarifying documentation. Please respond to the clarification below the line at the bottom and electronically sign. The CDI & [facility] Coding staff will review the response and follow-up if needed. Please note: Queries are made part of the Legal Health Record. If you have any questions, please contact the author of this message via ITS. Dr. Mario Downey The patient presented with accelerated episode of hypertension and what appear to be a seizure activity episode lasting about 30 seconds per family, per ED assessment. Request further clarification of the severity of illness related to her hypertension. History/Risk Factors: Hypertension Clinical Indicators: 79-year-old female seen in ED, 03/28 early am for elevated blood pressure treated and DC home. She returned to ED on 03/28 at 18:16 via EMS for seizure like activity and elevated blood pressure. 03/28 VS: 18:16 200/92 126 16 97.8, 18:20 VS: 204/103 107 16 91 % RA; 18:58 VS: 191/90 105 16 94 % 2/L NC 03/28 Lab findings: Glucose 215, BUN 21, CR 0.71 03/28 CT Brain: No acute intracranial hemorrhage or midline shift. Other Clinical Indicators: 03/29 Neurology: Probable benzodiazepine withdrawal seizure. Uncontrolled hypertension, which may be contributing to the seizure. Treatment: Labetalol Hcl 10 mg IVP x1 Norvasc 5 mg po,daily, increased to 10 mg po daily 03/30 Norvasc 5 mg po x1 po 03/29 @16:00 Hydrodiuril 25 mg po daily 03/29-03/30 In your professional opinion, can you please further clarify Hypertension? Hypertensive Urgency-This is the correct diagnosis of hypertensive urgency Hypertensive Emergency Other, please specify Unable to determine (Last Revision: January 2018) MTDD
[2020-03-30 09:41] VITALS: RESP 18; TEMP 98.7
--- NOTE | 2020-03-30 10:55 | ECHOF ---
Referral Reason:htn MEASUREMENTS -------- HEIGHT: 149.9 cm WEIGHT: 47.6 kg BP: 172/81 RVIDd: 3.3 cm (< 3.3) IVSd: 1.1 cm (0.6 - 1.1) LVIDd: 3.6 cm (3.9 - 5.3) LVPWd: 1.3 cm (0.6 - 1.1) IVSs: 1.4 cm LVIDs: 2.1 cm LVPWs: 2.0 cm LA Diam: 2.9 cm (2.7 - 3.8) LAESV Index (A-L): 43.16 ml/m Ao Diam: 3.0 cm (2.0 - 3.7) AV Cusp: 1.4 cm (1.5 - 2.6) MV EXCURSION: 14.056 mm (> 18.000) MV EF SLOPE: 11 mm/s (70 - 150) EPSS: 0.2 cm MV E Aaron: 0.98 m/s MV DecT: 228 ms MV A Aaron: 1.30 m/s MV E/A Ratio: 0.76 AV maxP.15 mmHg AV meanP.85 mmHg AR PHT: 472 ms RAP: 5.00 mmHg RVSP: 31.28 mmHg FINDINGS -------- This was a technically excellent study. The left ventricular size is normal. There is mild concentric left ventricular hypertrophy. Overa ll left ventricular systolic function is normal with, an EF between 60 - 65 %. The right ventricle is mildly enlarged. LA is severely dilated >40 ml/m2 The right atrium is normal in size. Interatrial and interventricular septum intact. The aortic valve is trileaflet and appears structurally normal. There is trace to mild mitral regurgitation. Mild tricuspid regurgitation present. Right ventricular systolic pressure is normal at < 35 mmHg. Trace/mild (physiologic) pulmonic regurgitation. The aortic root size is normal. Normal inferior vena cava with normal inspiratory collapse consistent with estimated right atrial pre ssure of 5 mmHg. There is no pericardial effusion. CONCLUSIONS -------- 1. This was a technically excellent study. 2. The left ventricular size is normal. 3. There is mild concentric left ventricular hypertrophy. 4. Overall left ventricular systolic function is normal with, an EF between 60 - 65 %. 5. The right ventricle is mildly enlarged. 6. LA is severely dilated >40 ml/m2 7. The right atrium is normal in size. 8. Interatrial and interventricular septum intact. 9. The aortic valve is trileaflet and appears structurally normal. 10. There is trace to mild mitral regurgitation. 11. Mild tricuspid regurgitation present. 12. Right ventricular systolic pressure is normal at < 35 mmHg. 13. Trace/mild (physiologic) pulmonic regurgitation. 14. The aortic root size is normal. 15. Normal inferior vena cava with normal inspiratory collapse consistent with estimated right atrial pressure of 5 mmHg. 16. There is no pericardial effusion. LIVING ADVISOR: Helga Mccain RDCS
--- NOTE | 2020-03-30 11:38 | P.PN ---
Subjective Progress Note Date: 03/30/20 This is an 79-year-old female patient with history of seizure disorder, osteoporosis, chronic pain and opioid dependence, hypertension. Presented to the hospital with what appeared to be tonic-clonic seizure witnessed by her son. Audiology consultation has been requested because of accelerated hypertension. Blood pressure remained somewhat elevated 158/69 but is much improved compared to yesterday. She is currently on amlodipine 10 mg by mouth daily, Lasix 20 mg by mouth daily, hydrochlorothiazide 25 mg by mouth daily and losartan 50 mg by mouth daily. We'll cardiogram with Doppler showed a normal LV systolic function with an ejection fraction of 60-65%, trace to mild MR and mild TR. Overall the patient is feeling quite a bit better today. No further seizure activity. She denies any complaints of chest discomfort, shortness of breath, palpitations, orthopnea or PND. Objective - Vital Signs Vital signs: Vital Signs Temp 98.7 F 03/30/20 08:15 Pulse 94 03/30/20 08:15 Resp 18 03/30/20 08:15 BP 158/69 03/30/20 08:15 Pulse Ox 98 03/30/20 08:15 Intake & Output 03/29/20 03/30/20 03/30/20 18:59 06:59 18:59 Intake Total 480 236 Balance 480 236 Weight 46.5 kg Intake: Oral 480 236 Other: Voiding Method Bedpan # Voids 3 1 2 - Exam PHYSICAL EXAMINATION: HEENT: Head is atraumatic, normocephalic. Pupils equal, round. Neck is supple. There is no elevated jugular venous pressure. HEART EXAMINATION: Heart sounds regular, S1 and S2 normal. No murmur or gallop heard. CHEST EXAMINATION: Lungs are clear to auscultation and precussion. No chest wall tenderness is noted on palpation or with deep breathing. ABDOMEN: Soft, nontender. Bowel sounds are heard. No organomegaly noted. EXTREMITIES: 2+ peripheral pulses with no evidence of peripheral edema and no calf tenderness noted. NEUROLOGIC patient is awake, alert and oriented x3. . - Labs CBC & Chem 7: 03/28/20 18:29 03/28/20 18:29 Labs: Microbiology - Last 24 Hours (Table) 03/28/20 21:00 Urine Culture - Final Urine,Voided Assessment and Plan Assessment: #1 possible seizure, neurology following #2 accelerated hypertension, improving #3 chronic pain with opioid dependence #4 scoliosis Plan: From cardiology's perspective indications were reviewed and we will continue the same. From our standpoint patient is stable for discharge home. Patient will need to follow blood pressure as an outpatient and depending on the readings further adjustments will be made as an outpatient. DIRECTOR TALENT note has been reviewed, I agree with a documented findings and plan of care. Patient was seen and examined.
--- NOTE | 2020-03-30 12:38 | P.PN ---
Subjective Progress Note Date: 03/30/20 Patient was seen for a follow-up. Patient states she feels tired. She is now catching up with her sleep. Hallucinations has resolved. Patient states that she is on multiple pain medications because of chronic low back pain. She has scoliosis. Objective - Vital Signs Vital signs: Vital Signs Temp 98.7 F 03/30/20 08:15 Pulse 94 03/30/20 08:15 Resp 18 03/30/20 08:15 BP 158/69 03/30/20 08:15 Pulse Ox 98 03/30/20 08:15 Intake & Output 03/29/20 03/30/20 03/30/20 18:59 06:59 18:59 Intake Total 480 236 Balance 480 236 Weight 46.5 kg Intake: Oral 480 236 Other: Voiding Method Bedpan # Voids 3 1 2 - Exam Patient slightly somnolent. Otherwise alert and awake fully oriented. Speech and language functions, cranial nerves are normal. Muscle strength normal. - Labs CBC & Chem 7: 03/28/20 18:29 03/28/20 18:29 Labs: Microbiology - Last 24 Hours (Table) 03/28/20 21:00 Urine Culture - Final Urine,Voided Assessment and Plan Assessment: * Probable benzodiazepine withdrawal seizure. Patient has been on Klonopin for number of years, which she stopped taking after her foot surgery on 03/23/2020. Patient probably had benzo withdrawal seizure. * Uncontrolled hypertension, which may be contributing to the seizure. * Opiate dependence, chronic pain. Plan: * Patient had an EEG performed, which was normal. * Patient's seizure was likely provoked due to benzodiazepine withdrawal. No indication for antiepileptic medication. No other workup indicated. * Patient is taking multiple heavy duty opiates. Patient was hallucinating yesterday. OxyContin decreased to 40 mg twice a day. Suggest gradual decrease to 20 mg twice a day. Also decreased dose of Neurontin to 300 mg 3 times a day. * Patient recommended not to abruptly stopped taking benzodiazepine in future. * Neurologically clear for discharge.
[2020-03-30 12:51] VITALS: BP 131/63; PULSE 96
== END 2020-03-30 12:52 | disposition home or self-care (01) | DRG 897 ==
LOC: EC 18:14 → 3SCARD 20:43
PROVIDERS: ADMIT Family Medicine; ATTEND Family Medicine
DX: F13.239 Sedative, hypnotic or anxiolytic dependence with withdrawal, unspecified (principal); F11.20 Opioid dependence, uncomplicated; R44.3 Hallucinations, unspecified; M41.9 Scoliosis, unspecified; M81.0 Age-related osteoporosis without current pathological fracture; I10 Essential (primary) hypertension; G89.29 Other chronic pain; H40.9 Unspecified glaucoma; I16.0 Hypertensive urgency; G40.909 Epilepsy, unspecified, not intractable, without status epilepticus; Z79.899 Other long term (current) drug therapy; Z90.710 Acquired absence of both cervix and uterus; Z90.49 Acquired absence of other specified parts of digestive tract; Z98.890 Other specified postprocedural states
CPT/HCPCS: 36415; 70450; 71046; 80053; 81001; 82550; 83735; 83880; 84100; 84443; 84484; 85025; 85610; 85730; 87086; 93005; 93306; 95816; 96360; 96361; 96374; 96375; 99284; 99285

== ENCOUNTER 2021-03-16 13:14 | Inpatient (IN) | payer MEDICARE, BC ==
[2021-03-16] MEDS ORDERED: SODIUM CHLORIDE 0.9% 500 ML 500 ML IV STA (13:23)
--- NOTE | 2021-03-16 13:28 | ED ---
Overdose HPI - General Stated Complaint: overdose Time Seen by Provider: 03/16/21 13:17 - History of Present Illness Initial Comments: Raeann is an 80-year-old female is brought to the ER today by ambulance with concern for an overdose. Family apparently found the patient this afternoon in her bed after having gone to bed last night. The patient was unable to be awoken, she had very rare shallow breathing. The son looked at the patient's medications and noted that she had taken her next 2 days worth of medications, patient is on baclofen, gabapentin and oral narcotics. EMS arrived on scene found the patient with shallow breathing and hypoxia and unresponsive. She was treated with half a milligram of IV Narcan at which time her breathing improved she was not verbal. Considering she was having normal respirations EMS chose not to give additional Narcan to prevent acute withdrawal. - Related Data Home Medications Medication Instructions Recorded Confirmed Baclofen [Lioresal] 20 mg PO TID 03/31/19 03/16/21 Gabapentin 600 mg PO TID 03/31/19 03/16/21 Hydrocodone/Acetaminophen [[place] 1 tab PO Q6H PRN 03/31/19 03/16/21 10-325] clonazePAM 1 mg PO BID 03/31/19 03/16/21 Furosemide [Lasix] 40 mg PO DAILY 03/28/20 03/16/21 Losartan Potassium [Cozaar] 100 mg PO DAILY 03/16/21 03/16/21 Nebivolol HCl [Bystolic] 5 mg PO DAILY 03/16/21 03/16/21 Previous Rx's Medication Instructions Recorded oxyCODONE ER [OxyCONTIN] 40 mg PO Q12HR #60 tab.er.12h 03/30/20 Allergies Allergy/AdvReac Type Severity Reaction Status Date / Time No Known Allergies Allergy Verified 03/16/21 15:41 Review of Systems ROS Statement: Those systems with pertinent positive or pertinent negative responses have been documented in the HPI. ROS Other: All systems not noted in ROS Statement are negative. Past Medical History Additional Past Medical History / Comment(s): osteoporosis, scoloisis, arthritis History of Any Multi-Drug Resistant Organisms: None Reported Past Surgical History: Appendectomy, Hysterectomy, Orthopedic Surgery Additional Past Surgical History / Comment(s): 2 shoulder surgeries with metal plates, hammer toes Past Anesthesia/Blood Transfusion Reactions: No Reported Reaction Past Psychological History: No Psychological Hx Reported Past Alcohol Use History: Rare Past Drug Use History: None Reported General Exam - General Exam Comments Initial Comments: Physical Exam GENERAL: Patient is well-developed and well-nourished. HENT: Normocephalic, Atraumatic. EYES: Right eye with surgical changes Left eye 4mm reactive PULMONARY: Unlabored respirations. No audible rales rhonchi or wheezing was noted. CARDIOVASCULAR: There is a regular rate and rhythm without any murmurs gallops or rubs. ABDOMEN: Soft and nontender with normal bowel sounds. SKIN: Healing abrasion to left elbow : Deferred NEUROLOGIC: Moaning and kicking, resists evaluation but does not respond verbally MUSCULOSKELETAL: Normal extremities with adequate strength and full range of motion. No lower extremity swelling or edema. No calf tenderness. PSYCHIATRIC: Unable to assess Course Vital Signs 03/16/21 03/16/21 13:32 16:01 Temperature 98 F Pulse Rate 50 L 46 L Respiratory 14 12 Rate Blood Pressure 185/60 126/89 O2 Sat by Pulse 100 100 Oximetry Medical Decision Making - Medical Decision Making Patient was seen and evaluated upon arrival to the emergency department 80-year-old female was found minimally responsive in her bed appeared to be on narcotic overdose responded to Narcan at sign on arrival the patient is moaning and thrashing but will not participate evaluation Patient's heart rate in the 50s respiratory rate in the teens oxygen saturation is good with supplement oxygen Labs and imaging were obtained Considering the patient is on narcotics containing Tylenol there is concern for Tylenol overdose therefore levels were obtained Labs are relatively unremarkable aside from elevated BUN/creatinine concerning from prerenal cause of acute kidney injury, IV fluids are infusing Patient care was discussed with Dr. Andujar who accepts the admission for altered mental status after narcotic overdose - Lab Data Result diagrams: 03/16/21 13:48 03/16/21 13:48 Lab Results 03/16/21 03/16/21 Range/Units 13:48 13:48 WBC 7.6 (3.8-10.6) k/uL RBC 4.23 (3.80-5.40) m/uL Hgb 12.2 (11.4-16.0) gm/dL Hct 38.3 (34.0-46.0) % MCV 90.5 (80.0-100.0) fL MCH 28.9 (25.0-35.0) pg MCHC 31.9 (31.0-37.0) g/dL RDW 15.7 H (11.5-15.5) % Plt Count 114 L (150-450) k/uL MPV 10.1 Neutrophils % 71 % Lymphocytes % 19 % Monocytes % 7 % Eosinophils % 2 % Basophils % 0 % Neutrophils # 5.4 (1.3-7.7) k/uL Lymphocytes # 1.4 (1.0-4.8) k/uL Monocytes # 0.5 (0-1.0) k/uL Eosinophils # 0.1 (0-0.7) k/uL Basophils # 0.0 (0-0.2) k/uL Hypochromasia Slight Sodium 142 (137-145) mmol/L Potassium 4.5 (3.5-5.1) mmol/L Chloride 107 (98-107) mmol/L Carbon Dioxide 27 (22-30) mmol/L Anion Gap 8 mmol/L BUN 61 H (7-17) mg/dL Creatinine 1.63 H (0.52-1.04) mg/dL Est GFR (CKD-EPI)AfAm 34 (>60 ml/min/1.73 sqM) Est GFR (CKD-EPI)NonAf 29 (>60 ml/min/1.73 sqM) Glucose 94 (74-99) mg/dL Calcium 9.4 (8.4-10.2) mg/dL Total Bilirubin 0.1 L (0.2-1.3) mg/dL AST 69 H (14-36) U/L ALT 34 (4-34) U/L Alkaline Phosphatase 68 (38-126) U/L Total Protein 6.7 (6.3-8.2) g/dL Albumin 3.8 (3.5-5.0) g/dL Salicylates <1.0 mg/dL Acetaminophen <10.0 ug/mL Serum Alcohol <10 mg/dL - EKG Data -: EKG Interpreted by Ne EKG shows normal: sinus rhythm Rate: bradycardia Disposition Clinical Impression: Accidental drug overdose, Bradycardia, PAULA (acute kidney injury), Altered mental status Disposition: ADMITTED IP TO THIS [facility] Condition: Serious Referrals: Mario Downey MD [Primary Care Provider] - 1-2 days
[2021-03-16 14:06] LABS: Basophils % (A) 0 %; Eosinophils # (A) 0.1 k/uL (0-0.7); Eosinophils % (A) 2 %; HCT 38.3 % (34.0-46.0); HGB 12.2 gm/dL (11.4-16.0); Hypochromasia Slight; Lymphocytes # (A) 1.4 k/uL (1.0-4.8); Lymphocytes % (A) 19 %; MCH 28.9 pg (25.0-35.0); MCHC 31.9 g/dL (31.0-37.0); MCV 90.5 fL (80.0-100.0); Mean Platelet Volume 10.1; Monocytes # (A) 0.5 k/uL (0-1.0); Monocytes % (A) 7 %; Neutrophils # (A) 5.4 k/uL (1.3-7.7); Neutrophils % (A) 71 %; Platelet Count 114 k/uL (150-450); RBC 4.23 m/uL (3.80-5.40); RDW 15.7 % (11.5-15.5); WBC 7.6 k/uL (3.8-10.6)
[2021-03-16 14:14] LABS: ALT 34 U/L (4-34); AST 69 U/L (14-36); Acetaminophen <10.0 ug/mL; African American GFR (CKD) 34 (>60 ml/min/1.73 sqM); Albumin 3.8 g/dL (3.5-5.0); Alcohol <10 mg/dL; Alkaline Phosphatase 68 U/L (38-126); Anion Gap 8 mmol/L; Blood Urea Nitrogen 61 mg/dL (7-17); Calcium 9.4 mg/dL (8.4-10.2); Carbon Dioxide 27 mmol/L (22-30); Chloride 107 mmol/L (98-107); Glucose 94 mg/dL (74-99); Non-African American GFR(CKD) 29 (>60 ml/min/1.73 sqM); Potassium 4.5 mmol/L (3.5-5.1); Salicylate <1.0 mg/dL; Sodium 142 mmol/L (137-145); Total Bilirubin 0.1 mg/dL (0.2-1.3); Total Protein 6.7 g/dL (6.3-8.2)
[2021-03-16] MEDS ORDERED: NALOXONE 0.4 MG/ML 1 ML VIAL IV PRN (17:49)
[2021-03-16] MEDS ORDERED: ACETAMINOPHEN TAB 500 MG TAB PO PRN (18:05)
[2021-03-16 18:47] LABS: Amphetamine Screen,Urine Not Detected (NotDetected); Barbiturate Screen,Urine Not Detected (NotDetected); Benzodiazepines Screen,Urine Not Detected (NotDetected); Cocaine Screen,Urine Not Detected (NotDetected); Methadone Screen, Urine Not Detected (NotDetected); Opiate Screen,Urine Detected (NotDetected); Oxycodone Screen, Urine Detected (NotDetected); Phencyclidine Screen,Urine Not Detected (NotDetected); Tricyclic Antidepressant,Urine Not Detected (NotDetected); Urn Cannabinoid Scrn Not Detected (NotDetected)
[2021-03-16 18:49] LABS: Appearance,Urine Clear (Clear); Bilirubin,Urine Negative (Negative); Blood,Urine Negative (Negative); Color,Urine Light Yellow; Glucose,Urine (UA) Negative (Negative); Ketones,Urine Negative (Negative); Leukocyte Esterase,Urine Negative (Negative); Nitrite,Urine Negative (Negative); PH, Urine 5.5 (5.0-8.0); Protein,Urine Negative (Negative); Specific Gravity,Urine 1.011 (1.001-1.035); Urobilinogen,Urine <2.0 mg/dL (<2.0)
--- NOTE | 2021-03-16 19:03 | CT ---
EXAMINATION TYPE: CT brain wo con DATE OF EXAM: 03/16/2021 COMPARISON: 03/28/2020 HISTORY: Altered mental status. CT DLP: 1043.4 mGycm Automated exposure control for dose reduction was used. There is cerebral cortical atrophy. There is no mass effect nor midline shift. There is no sign of in tracranial hemorrhage. The calvarium is intact. There is normal aeration of the mastoid sinuses. IMPRESSION: Cerebral atrophy. No acute intracranial abnormality. No change.
--- NOTE | 2021-03-16 19:04 | XR ---
EXAMINATION TYPE: XR chest 1V portable DATE OF EXAM: 03/16/2021 COMPARISON: 03/28/2020 HISTORY: CHF TECHNIQUE: Single view FINDINGS: There is some atelectasis at the lung bases. There is no heart failure. There is hiatal her [place]. There is bilateral shoulder prosthesis. IMPRESSION: There is some mild atelectasis at the lung bases increased compared to old exam. No heart failure seen.
--- NOTE | 2021-03-16 19:38 | HP ---
HISTORY AND PHYSICAL CHIEF COMPLAINTS: Overdose and also change in mental status. HISTORY OF PRESENT ILLNESS: This is 80-year-old woman with a past medical history of appendectomy, hysterectomy, DJD being followed by Dr. Downey in the outpatient setting. The patient was admitted last year to the hospital with scoliosis, hypertension and possibly accidental drug injection. The patient also had seizure disorder. The patient was thought to have benzodiazepine withdrawal at that time. Currently, the patient was found to be unresponsive and the patient was taken to [facility] and was admitted for further evaluation and treatment. The family found him in the afternoon in the bed and the patient apparently took multiple doses of medications at least 2 days worth of medications including baclofen, gabapentin, and narcotics. Currently patient barely arousable. The patient being closely monitored. There is no history of any fever, rigor or chills at this time. PAST MEDICAL HISTORY: History of appendectomy, hysterectomy, DJD, history of scoliosis, DJD. MEDICATIONS: Home medications are OxyContin, Cozaar. [place], Klonopin, Bystolic, gabapentin, Lasix and Lioresal. ALLERGIES: None. Family history, social history and review of systems could not be taken because the patient's change in mental status. PHYSICAL EXAMINATION: The patient is sedated. Pulse is 46, blood pressure 126/80, respiration 12, temperature 98 degrees. Pulse ox 100 percent on 4 L. HEENT is conjunctivae normal. Oral mucosa moist. NECK is no jugular venous distention. No carotid bruit. No lymph node enlargement. CARDIOVASCULAR system: S1, S2 muffled. RESPIRATORY: Breath sounds diminished in the bases. A few scattered rhonchi. No crackles. ABDOMEN: Soft, nontender. No mass palpable. LEGS: No edema. No swelling. NERVOUS SYSTEM: Higher functions as mentioned earlier. Otherwise, the patient is sedated. No focal weakness noted. SKIN: No ulcer rash or bleeding. JOINTS: No active deforming arthropathy. LYMPHATICS: No lymph nodes palpable in the neck, axillae or groin. LABS: At this time shows: WBC 7.7, hemoglobin 12.2, platelets are 114. Creatinine is 1.63. The baseline creatinine is 6.7. ASSESSMENT: 1. Change in mental status acute metabolic encephalopathy secondary to drug overdosage. 2. Acute hypoxic respiratory failure secondary to opioid overdose. 3. Opiate overdosage. 4. Increased creatinine with acute renal failure, acute tubular necrosis and dehydration. 5. Increased AST. 6. Thrombocytopenia. 7. History of osteoporosis. 8. History of scoliosis. 9. History of degenerative joint disease. 10.History of seizure disorder. 11.Sinus bradycardia. RECOMMENDATIONS AND DISCUSSION: This 80-year-old woman who presented with multiple medical problems, we will monitor the patient closely, continue the current medications, management and symptomatic treatment. Otherwise, IV fluids. Narcan has been given. I would also recommend a CT scan of the brain and other workup also. We will hold off narcotic medications at this time. Prognosis guarded because of multiple complex medical issues. Further recommendations to follow. A copy of dictation is being forwarded to Dr. Downey who is the primary physician. All charts are reviewed. MMARNALDOL / IJN: [id number] /
[2021-03-16] MEDS: PANTOPRAZOLE 40 MG/10 ML VIAL IVP SCH (21:29)
[2021-03-16] MEDS: HEPARIN SODIUM,PORCINE/PF 5,000 UNIT/0.5 ML SYRINGE SQ SCH (22:38)
[2021-03-17] MEDS ORDERED: QUEtiapine 25 MG TAB PO STA (01:28)
[2021-03-17] MEDS: NEBIVOLOL 5 MG TAB PO SCH (09:38)
[2021-03-17] MEDS: HEPARIN SODIUM,PORCINE/PF 5,000 UNIT/0.5 ML SYRINGE SQ SCH ×2 (09:38→20:01)
[2021-03-17] MEDS: PANTOPRAZOLE 40 MG/10 ML VIAL IVP SCH (09:38)
[2021-03-17 12:23] LABS: Basophils # (A) 0 X 10*3/uL (0.00-0.10); Basophils % (A) 0 %; Eosinophils # (A) 0.01 X 10*3/uL (0.04-0.35); Eosinophils % (A) 0.2 %; HCT 38.3 % (37.2-46.3); HGB 11.5 g/dL (12.0-15.0); Lymphocytes # (A) 0.58 X 10*3/uL (0.90-5.00); Lymphocytes % (A) 9.3 %; MCH 27.6 pg (27.0-32.0); MCV 92.1 fL (80.0-97.0); Mean Platelet Volume 12.5 fL (9.5-12.2); Monocytes # (A) 0.36 X 10*3/uL (0.20-1.00); Monocytes % (A) 5.8 %; Neutrophils # (A) 5.29 X 10*3/uL (1.80-7.70); Neutrophils % (A) 84.5 %; Platelet Count 143 X 10*3/uL (140-440); RBC 4.16 X 10*6/uL (4.10-5.20); RDW 16.4 % (11.5-14.5); WBC 6.25 X 10*3/uL (4.50-10.00)
[2021-03-17 12:49] LABS: African American GFR (CKD) 79.6 (60.0-200.0); Albumin/Globulin Ratio 1.38 (1.60-3.17); Anion Gap 11.3 mmol/L (4.00-12.00); BUN/Creat Ratio 47.5 Ratio (12.00-20.00); Calcium 9.6 mg/dL (8.7-10.3); Carbon Dioxide 27.7 mmol/L (21.6-31.8); Globulin 2.9 g/dL (1.6-3.3); Non-African American GFR(CKD) 68.7 (60.0-200.0); Potassium 4.4 mmol/L (3.5-5.5); Total Bilirubin 0.3 mg/dL (0.3-1.2); Total Protein 6.9 g/dL (6.2-8.2)
[2021-03-17] MEDS ORDERED: QUEtiapine 25 MG TAB PO PRN (15:27)
[2021-03-17] MEDS: BACLOFEN 10 MG TAB PO SCH ×2 (16:30→20:01)
[2021-03-17] MEDS: GABAPENTIN 100 MG CAP PO SCH ×2 (16:30→20:01)
[2021-03-17] MEDS: SODIUM CHLORIDE 0.9% 1,000 ML IV SCH (16:33)
--- NOTE | 2021-03-17 18:37 | PN ---
PROGRESS NOTE DATE OF SERVICE: 03/17/2001 INTERVAL HISTORY: This 80-year-old woman who was admitted with change in mental status acute metabolic, second overdose, also had acute hypoxic respiratory failure secondary to opioid overdose. The patient is legally blind, unable to take medication according to the son whom I had a detailed discussion. At this time, medication management arrangements are being held. The patient also had a CT scan of the brain which showed cerebral atrophy. No acute changes are noted and chest x-ray which was done in the ER reviewed closely showed some mild leg atelectasis. PAST MEDICAL HISTORY: Reviewed. REVIEW OF SYSTEMS: CARDIOVASCULAR SYSTEM: No angina or palpitations. RESPIRATION: As mentioned earlier. GI as mentioned earlier. : No dysuria. NERVOUS SYSTEM: As mentioned earlier. CURRENT MEDICATIONS: Reviewed and include: Tylenol, heparin, Narcan, Bystolic, Protonix. PHYSICAL EXAM: Patient is alert, oriented x2. Pulse 77. Blood pressure 109/51, respiration 18, temperature 97.2, pulse ox 94% on room air. HEENT: Conjunctivae normal. NECK: No JVD. CARDIOVASCULAR: S1, S2 muffled. RESPIRATORY SYSTEM: Breath sounds diminished at the bases. A few scattered rhonchi and crackles. ABDOMEN: Soft, nontender. LEGS are no edema. No swelling. NERVOUS SYSTEM: Diffusely weak. LABS: Sodium 150, other labs are noted. ASSESSMENT: 1. Change in mental status, acute metabolic encephalopathy, metabolic toxic encephalopathy secondary to drug overdose. 2. Acute hypoxic respiratory secondary to drug overdose. 3. Hypernatremia and dehydration. 4. Opioid overdose. 5. Increased creatinine with acute renal failure, acute tubular necrosis and dehydration. 6. Increased AST. 7. Thrombocytopenia. 8. History of osteoporosis. 9. Legally blind. 10.History of scoliosis. 11.History of degenerative joint disease. 12.History of seizure disorder. 13.Sinus bradycardia. RECOMMENDATIONS AND DISCUSSION: This 80-year-old woman who presented with multiple complex medical issues, we will monitor the patient closely, continue the current medications, and symptomatic treatment. Otherwise, I would recommend resume the home medications. IV fluids cautiously. Guarded prognosis because of multiple complex medical issues. Repeat labs and discussed with the family at length. mechanical maintenance worker consultation. Dr. Downey will follow tomorrow in the morning. MMODL / IJN: [id number] /
[2021-03-18] MEDS: SODIUM CHLORIDE 0.9% 1,000 ML IV SCH ×2 (03:52→17:02)
--- NOTE | 2021-03-18 08:07 | P.PN ---
Subjective Principal diagnosis: Accidental overdose This is a continue pressure 80-year-old white female who has had severe kyphoscoliosis and because of this has had chronic pain elements and opiate dependence. The patient has been stable but has legal blindness now. Objective - Vital Signs Vital signs: Vital Signs Temp 98.5 F 03/18/21 01:06 Pulse 81 03/18/21 01:06 Resp 14 03/18/21 01:06 BP 177/70 03/18/21 01:06 Pulse Ox 94 L 03/18/21 01:06 Intake & Output 03/17/21 03/18/21 03/18/21 18:59 06:59 18:59 Intake Total 150 600 Output Total 500 Balance 150 100 Weight 50.666 kg Intake: Intake, IV Titration 150 600 Amount Sodium Chloride 0.9% 1, 150 600 000 ml @ 75 mls/hr IV . [id number] [facility] Rx#:[id number] Output: Urine 500 Other: Voiding Method Indwelling Catheter - Constitutional General appearance: Present: no acute distress - EENT Eyes: Absent: abnormal pupil - Neck Neck: Absent: lymphadenopathy, normal ROM - Respiratory Respiratory: bilateral: CTA - Cardiovascular Rhythm: regular Heart sounds: normal: S1, S2 Abnormal Heart Sounds: Absent: S3 Gallop - Gastrointestinal General gastrointestinal: Present: soft. Absent: tenderness - Labs CBC & Chem 7: 03/17/21 07:02 03/17/21 07:02 Labs: Abnormal Lab Results - Last 24 Hours (Table) 03/17/21 03/17/21 Range/Units 07:02 07:02 Hgb 11.5 L (12.0-15.0) g/dL MCHC 30.0 L (32.0-37.0) g/dL RDW 16.4 H (11.5-14.5) % MPV 12.5 H (9.5-12.2) fL Lymphocytes # 0.58 L (0.90-5.00) X 10*3/uL Eosinophils # 0.01 L (0.04-0.35) X 10*3/uL Sodium 150 H (135-145) mmol/L Chloride 111 H (96-109) mmol/L BUN 38.0 H (9.0-27.0) mg/dL BUN/Creatinine Ratio 47.50 H (12.00-20.00) Ratio AST 63 H (13-35) U/L Albumin/Globulin Ratio 1.38 L (1.60-3.17) g/dL Assessment and Plan (1) Accidental drug overdose Current Visit: Yes Status: Acute Code(s): T50.901A - POISONING BY UNSP DRUG/MEDS/BIOL SUBST, ACCIDENTAL, INIT SNOMED Code(s): 17179039 (2) Altered mental status Current Visit: Yes Status: Acute Code(s): R41.82 - ALTERED MENTAL STATUS, UNSPECIFIED SNOMED Code(s): 571102957 (3) Hypertension Current Visit: No Status: Acute Code(s): I10 - ESSENTIAL (PRIMARY) HYPERTENSION SNOMED Code(s): 79264867 (4) Scoliosis Current Visit: No Status: Acute Code(s): M41.9 - SCOLIOSIS, UNSPECIFIED SNOMED Code(s): 846759478 Plan: The patient will continue supportive care. We did discuss about the protocol for cool control her controlled medication. We did discuss the possibility using external devices outside of pillboxes area Discharge planning. Anticipate discharge in the next 24 hours. LEONIE Corado.
[2021-03-18] MEDS: LOSARTAN 50 MG TAB PO SCH (08:17)
[2021-03-18] MEDS: HEPARIN SODIUM,PORCINE/PF 5,000 UNIT/0.5 ML SYRINGE SQ SCH ×2 (08:17→20:37)
[2021-03-18] MEDS: PANTOPRAZOLE 40 MG/10 ML VIAL IVP SCH (08:17)
[2021-03-18] MEDS: BACLOFEN 10 MG TAB PO SCH ×3 (08:17→20:37)
[2021-03-18] MEDS: NEBIVOLOL 5 MG TAB PO SCH (08:17)
[2021-03-18] MEDS: GABAPENTIN 100 MG CAP PO SCH ×3 (08:18→20:37)
[2021-03-18 12:09] LABS: Basophils # (A) 0.01 X 10*3/uL (0.00-0.10); Basophils % (A) 0.2 %; Eosinophils # (A) 0.02 X 10*3/uL (0.04-0.35); Eosinophils % (A) 0.3 %; HCT 36.3 % (37.2-46.3); HGB 10.9 g/dL (12.0-15.0); Lymphocytes # (A) 0.97 X 10*3/uL (0.90-5.00); Lymphocytes % (A) 15.2 %; MCH 27.7 pg (27.0-32.0); MCV 92.1 fL (80.0-97.0); Mean Platelet Volume 12.8 fL (9.5-12.2); Monocytes # (A) 0.37 X 10*3/uL (0.20-1.00); Monocytes % (A) 5.8 %; Neutrophils # (A) 5.02 X 10*3/uL (1.80-7.70); Neutrophils % (A) 78.3 %; Platelet Count 140 X 10*3/uL (140-440); RBC 3.94 X 10*6/uL (4.10-5.20); RDW 16.5 % (11.5-14.5)
[2021-03-18 12:56] LABS: African American GFR (CKD) 79.6 (60.0-200.0); Anion Gap 8.6 mmol/L (4.00-12.00); Calcium 9.6 mg/dL (8.7-10.3); Carbon Dioxide 24.4 mmol/L (21.6-31.8); Non-African American GFR(CKD) 68.7 (60.0-200.0); Potassium 4.4 mmol/L (3.5-5.5)
[2021-03-18] MEDS: amLODIPine 5 MG TAB PO SCH (16:27)
[2021-03-18] MEDS: ARTIFICIAL TEARS-HYPROMELLOSE DROPS 15 ML BTL BOTH EYES SCH (16:27)
[2021-03-18] MEDS: BRIMONIDINE TARTRATE 0.2% DROPS 5 ML BTL BOTH EYES SCH (20:38)
[2021-03-18] MEDS: DORZOLAMIDE HCL 2% DROPS 10 ML BTL BOTH EYES SCH (20:38)
[2021-03-18] MEDS: HYDROcodone/APAP 10-325MG 1 EACH TAB PO PRN (20:51)
[2021-03-18] MEDS ORDERED: LATANOPROST 0.005% OPHTH DROPS 2.5 ML BTL BOTH EYES SCH (21:00)
[2021-03-19] MEDS: HYDROcodone/APAP 10-325MG 1 EACH TAB PO PRN ×2 (04:05→12:59)
[2021-03-19] MEDS ORDERED: PANTOPRAZOLE 40 MG TABLET PO SCH (07:30)
[2021-03-19] MEDS: NEBIVOLOL 5 MG TAB PO SCH (07:36)
[2021-03-19] MEDS: ARTIFICIAL TEARS-HYPROMELLOSE DROPS 15 ML BTL BOTH EYES SCH (07:37)
[2021-03-19] MEDS: LOSARTAN 50 MG TAB PO SCH (07:37)
[2021-03-19] MEDS: BACLOFEN 10 MG TAB PO SCH ×2 (07:37→16:03)
[2021-03-19] MEDS: GABAPENTIN 100 MG CAP PO SCH ×2 (07:37→16:02)
[2021-03-19] MEDS: HEPARIN SODIUM,PORCINE/PF 5,000 UNIT/0.5 ML SYRINGE SQ SCH (07:37)
[2021-03-19] MEDS: amLODIPine 5 MG TAB PO SCH (07:37)
[2021-03-19] MEDS: BRIMONIDINE TARTRATE 0.2% DROPS 5 ML BTL BOTH EYES SCH (07:38)
[2021-03-19] MEDS: DORZOLAMIDE HCL 2% DROPS 10 ML BTL BOTH EYES SCH (07:38)
[2021-03-19] MEDS: SODIUM CHLORIDE 0.9% 1,000 ML IV SCH (07:38)
--- NOTE | 2021-03-19 08:36 | P.DS ---
Providers Date of admission: 03/16/21 17:49 Attending physician: Mario Downey Primary care physician: Mario Downey - Discharge Diagnosis(es) (1) Accidental drug overdose Current Visit: Yes Status: Acute (2) Altered mental status Current Visit: Yes Status: Acute (3) Hypertension Current Visit: No Status: Acute (4) Scoliosis Current Visit: No Status: Acute Hospital Course: This discharge summary age 80-year-old white female essentially admitted for axonal overdose. Due to blindness she overtook medication. She has elements of kyphoscoliosis with chronic pain elements. The family had a long discussion about how to properly dispense her medication. She requires minimal assistance for transfer and will hopefully sent home with home health and physical therapy. She has been living upstairs in her house and is now been transferred to the first floor level to minimize fall risk. I preferred that she consider rehab but she would like to go home since she is needing minimal assistance for evaluation and transfer. Patient Condition at Discharge: Serious Plan - Discharge Summary New Discharge Prescriptions: No Action Hydrocodone/Acetaminophen [[place] 10-325] 1 tab PO Q6H PRN PRN Reason: Pain Gabapentin 600 mg PO TID clonazePAM 1 mg PO BID Baclofen [Lioresal] 20 mg PO TID Furosemide [Lasix] 40 mg PO DAILY oxyCODONE ER [OxyCONTIN] 40 mg PO Q12HR #60 tab.er.12h Losartan Potassium [Cozaar] 100 mg PO DAILY Nebivolol HCl [Bystolic] 5 mg PO DAILY Brinzolamide/Brimonidine Tart [Simbrinza 1%-0.2% Eye Drops] 1 drop BOTH EYES BID Propylene Glycol/Peg 400 [Systane Ultra 0.4-0.3% Eye Drp] 1 drop BOTH EYES DAILY Bimatoprost [Lumigan .01% Ophth Soln] 1 drop BOTH EYES HS Discharge Medication List Baclofen [Lioresal] 20 mg PO TID 03/31/19 [History] Gabapentin 600 mg PO TID 03/31/19 [History] Hydrocodone/Acetaminophen [[place]ia 10-325] 1 tab PO Q6H PRN 03/31/19 [History] clonazePAM 1 mg PO BID 03/31/19 [History] Furosemide [Lasix] 40 mg PO DAILY 03/28/20 [History] oxyCODONE ER [OxyCONTIN] 40 mg PO Q12HR #60 tab.er.12h 03/30/20 [Rx] Losartan Potassium [Cozaar] 100 mg PO DAILY 03/16/21 [History] Nebivolol HCl [Bystolic] 5 mg PO DAILY 03/16/21 [History] Bimatoprost [Lumigan .01% Ophth Soln] 1 drop BOTH EYES HS 03/17/21 [History] Brinzolamide/Brimonidine Tart [Simbrinza 1%-0.2% Eye Drops] 1 drop BOTH EYES BID 03/17/21 [History] Propylene Glycol/Peg 400 [Systane Ultra 0.4-0.3% Eye Drp] 1 drop BOTH EYES DAILY 03/17/21 [History] Follow up Appointment(s)/Referral(s): Mario Downey MD [Primary Care Provider] - 1-2 days [facility], [NON-STAFF] -
[2021-03-19] MEDS ORDERED: clonazePAM 1 MG TAB PO SCH (13:15)
[2021-03-19 14:53] VITALS: BP 165/66; PULSE 70; RESP 19; TEMP 98.4
== END 2021-03-19 16:20 | DRG 917 ==
LOC: EC 13:14 → 4SSUR 17:49
PROVIDERS: ADMIT Family Medicine; ATTEND Family Medicine
DX: T40.2X1A Poisoning by other opioids, accidental (unintentional), initial encounter (principal); G92 Toxic encephalopathy; J96.01 Acute respiratory failure with hypoxia; N17.0 Acute kidney failure with tubular necrosis; E87.0 Hyperosmolality and hypernatremia; F11.20 Opioid dependence, uncomplicated; J98.11 Atelectasis; D69.6 Thrombocytopenia, unspecified; E86.0 Dehydration; G40.909 Epilepsy, unspecified, not intractable, without status epilepticus; G89.29 Other chronic pain; H54.8 Legal blindness, as defined in USA; I10 Essential (primary) hypertension; M41.9 Scoliosis, unspecified; M81.0 Age-related osteoporosis without current pathological fracture; Z20.822 Contact with and (suspected) exposure to COVID-19; M19.90 Unspecified osteoarthritis, unspecified site; R00.1 Bradycardia, unspecified; Z90.49 Acquired absence of other specified parts of digestive tract; Z90.710 Acquired absence of both cervix and uterus; Z79.899 Other long term (current) drug therapy
CPT/HCPCS: 36415; 70450; 71045; 80048; 80053; 80143; 80179; 80306; 80320; 81003; 85025; 87635; 93005; 96360; 99285